=== PATIENT | male | born 1955 | race Caucasian/White ===

== ENCOUNTER 2020-08-05 11:58 | Inpatient (IN) | payer OTHER, SELFPAY ==
[2020-08-05 12:03] VITALS: BP 149/70; PULSE 94; RESP 24; TEMP 37.4; O2SAT 100; BMI 50.5
--- NOTE | 2020-08-05 12:06 | ED_ITS ---
HPI - General Adult General Chief complaint: Nausea/Vomiting/Diarrhea Stated complaint: UNKNOWN Time Seen by Provider: 08/05/20 12:06 Source: EMS Mode of arrival: EMS Limitations: no limitations History of Present Illness HPI narrative: 64-year-old male with below history including history of chronic alcoholism with frequent relapses as well as heroin abuse as well as other history as noted below presenting with complaint states he has had some nausea vomiting and diarrhea for past 3 days with body aches feeling like he is in withdrawal from opiates/ Alcohol. He otherwise denies any fever chills. No chest pain or shortness of breath. Does have abdominal pain which does seem to exacerbate during his times of withdrawal. No upper respiratory symptoms. No recent travel or sick contacts. No recent hospitalization. States he takes a few nips a day last drink was 3 days ago as well as occasional heroin and last used 3 days ago as well. Onset (ago): day(s) Severity: moderate Pain Consistency: constant Relieving factors: none Treatments prior to arrival: none Related Data Home Medications Medication Instructions Recorded Confirmed omeprazole 1 cap PO DAILY 08/05/20 08/05/20 ondansetron HCl 1 tab PO Q6H PRN 08/05/20 08/05/20 potassium chloride 1 tab PO Q12H 08/05/20 08/05/20 Allergies Allergy/AdvReac Type Severity Reaction Status Date / Time No Known Allergies Allergy Unverified 05/15/20 14:53 Review of Systems Review of Systems: Constitutional: No Weight loss, No Fever, + Chills, No Night Sweats, No Fatigue, No Malaise ENT/Mouth: No Hearing loss, No Ear Pain, No Nasal Congestion, No Sinus Pain, No Hoarseness, No sore throat, No Rhinorrhea, No Swallowing Difficulty Eyes: No Eye Pain, No Swelling, No Redness, No Foreign Body, No Discharge, No Vision Changes Cardiovascular: No Chest Pain, No SOB, No Dyspnea on Exertion, No Orthopnea, No Edema, No Palpitations Respiratory: No Cough, No Sputum, No Wheezing, No Smoke Exposure, No Dyspnea Gastrointestinal:as noted in HPI, No Hematochezia, No Melena Genitourinary: no irregular bleeding, No Dysuria, No Urinary Frequency, No Hematuria, No Urinary Incontinence, No Urgency, No Flank Pain, No Urinary Flow Changes, No Hesitancy Musculoskeletal: No joint pain, No Myalgias, No Joint Swelling Skin: No Skin Lesions, No rash Neuro: No Weakness, No Numbness, No Paresthesias, No Loss of Consciousness, No Dizziness, No Headache Psych: + Anxiety, No Depression, No SI/HI/AH/VH Heme/Lymph: No Bruising, No Bleeding,No Lymphadenopathy Endocrine: No Polyuria, No Polydipsia, No Temperature Intolerance [facility] Past Medical History Medical History (Updated 08/05/20 @ 15:40 by Solo Lemons NP) Atherosclerosis of aorto-iliac bypass graft Depressive disorder ETOH abuse Hepatitis Hypertension Thrombocytopenia Surgical History (Updated 08/05/20 @ 12:30 by Solo Lemons NP) H/O aorto-femoral bypass Hx of endovascular stent graft for abdominal aortic aneurysm Social History Social History Advance Directives: No Advance Directives Information Provided: No Physical Exam Vital Signs: Vital Signs: Last Vital Signs Temp 99.4 F 08/05/20 12:03 Pulse 94 08/05/20 12:03 Resp 24 H 08/05/20 12:03 BP 149/70 H 08/05/20 12:03 Pulse Ox 100 08/05/20 12:03 Body Mass Index 50.5 Reviewed Const: Other: appears older than stated age/ anxious and tremorous General: anxious, ill appearing and poor hygiene Nutritional Appearance: average body habitus Orientation/consciousness: patient oriented x3 HENMT: Head: Yes normal to inspection Ears: hearing grossly normal bilaterally Eyes: General: appearance normal, both eyes and all related structures Visual Cain: normal visual cain by confrontation Neck: Neck: Yes normal visual inspection and No tender Thyroid: Thyroid normal Chest: Chest palpation & inspection: normal inspection of the chest Resp: Effort & Inspection: normal respiratory effort Auscultation: clear to auscultation bilaterally Cardio: Jugular venous distension: no JVD Rhythm: abnormal rhythm ( sinus rhythm with occasional PVC ) GI: Inspection: Yes normal to inspection Palpation (GI): Soft to palpation Percussion: Yes normal to percussion Auscultation: normal bowel sounds : General: Yes no CVA tenderness Back/Spine/Pelvis: Back: no CVA tenderness Skin: General skin exam: no rashes or lesions noted Neuro: General: patient oriented x3 Extrem: General: Yes normal to inspection Right lower extremity: normal to inspection and full ROM Course Course Course Narrative: in review 62-year-old male with above history known to this facility for his prior visits for similar complaint presenting via EMS from home with 3 days of sobriety from opiates as well as alcohol which she seems to be using for a regularly recently relapsed presenting very tremorous and symptoms consistent with alcohol withdrawal. Workup initiated EKG and bedside monitor shows sinus rhythm with occasional PVC/Pac. Case discussed with attending given the alcohol abuse will go ahead and administer 2 mg of IV magnesium, IV fluids as well as banana bag ordered. Workup initiated will monitor closely. Reevaluation(s) Reevaluation #1: his tachycardia and tremors have improved started on phenobarbital. Labs shows mild hypokalemia repleted with IV K given IV fluids as well as banana bag. Chest x-ray negative as well as COVID test negative. Plan for admission. Case discussed with hospitalist. Medical Decision Making Lab Data Result diagrams: 08/05/20 13:17 08/05/20 13:17 Labs: Lab Results 08/05/20 08/05/20 08/05/20 Range/Units 13:16 13:16 13:16 WBC (4.8-10.8) X10*3/uL RBC (4.60-5.80) X10*6/uL Hgb (14.0-18.0) g/dl Hct (42-52) % MCV (80-98) fL MCH (27.0-33.0) pg MCHC (31.0-36.0) g/dl RDW (11.0-16.0) % Plt Count (160-400) X10*3/uL MPV (9.4-12.4) fL Immature Gran % (Auto) (0.0-0.4) % Neut % (Auto) (45-73) % Lymph % (Auto) (20-40) % [place] % (Auto) (2-11) % Eos % (Auto) (0-4) % Baso % (Auto) (0-2) % Lymph # (Auto) (1.2-4.9) X10*3/uL [place] # (Auto) (0.1-1.2) X10*3/uL Eos # (Auto) (0.0-0.4) X10*3/uL Baso # (Auto) (0.0-0.2) X10*3/uL Abs Immat Gran (auto) (0.00-0.03) X10*3/uL Absolute Neuts (auto) (2.0-8.3) X10*3/uL Absolute Nucleated RBC (0.0-0.012) X10*3/uL Nucleated RBC % (auto) (0.0-0.2) /100WBC PT (10.8-13.0) SEC INR (0.9-1.1) APTT (24.1-38.0) SEC Sodium (135-145) mmol/L Potassium (3.3-5.1) mmol/l Chloride (96-108) mmol/L Carbon Dioxide (22-29) mmol/L Anion Gap (12-20) BUN (9-16) mg/dL Creatinine (0.5-1.4) mg/dL Estim Creat Clear Calc Estimated GFR Random Glucose (60-115) mg/dL Lactic Acid 1.7 (0.5-2.0) mmol/L Calcium (8.4-10.2) mg/dL Magnesium (1.6-2.6) mg/dL Total Bilirubin (0.0-1.0) mg/dL AST (5-37) U/L ALT (0-40) U/L Alkaline Phosphatase (39-117) U/L Troponin I High Sens 7.6 (<3.5-35.0) ng/L Total Protein (6.5-8.0) g/dL Albumin (3.5-5.0) g/dL Ethyl Alcohol < 10 mg/dL COVID-19 (TUAN) (Negative) COVID-19 Clin Com 08/05/20 08/05/20 08/05/20 Range/Units 13:17 13:17 13:17 WBC 8.4 (4.8-10.8) X10*3/uL RBC 3.77 L (4.60-5.80) X10*6/uL Hgb 12.3 L (14.0-18.0) g/dl Hct 37.0 L (42-52) % MCV 98.1 H (80-98) fL MCH 32.6 (27.0-33.0) pg MCHC 33.2 (31.0-36.0) g/dl RDW 14.2 (11.0-16.0) % Plt Count 213 (160-400) X10*3/uL MPV 10.0 (9.4-12.4) fL Immature Gran % (Auto) 0.4 (0.0-0.4) % Neut % (Auto) 81.0 H (45-73) % Lymph % (Auto) 8.5 L (20-40) % [place] % (Auto) 9.4 (2-11) % Eos % (Auto) 0.0 (0-4) % Baso % (Auto) 0.7 (0-2) % Lymph # (Auto) 0.7 L (1.2-4.9) X10*3/uL [place] # (Auto) 0.8 (0.1-1.2) X10*3/uL Eos # (Auto) 0.0 (0.0-0.4) X10*3/uL Baso # (Auto) 0.1 (0.0-0.2) X10*3/uL Abs Immat Gran (auto) 0.03 (0.00-0.03) X10*3/uL Absolute Neuts (auto) 6.8 (2.0-8.3) X10*3/uL Absolute Nucleated RBC 0.000 (0.0-0.012) X10*3/uL Nucleated RBC % (auto) 0.0 (0.0-0.2) /100WBC PT 12.7 (10.8-13.0) SEC INR 1.1 (0.9-1.1) APTT 29.4 (24.1-38.0) SEC Sodium 138 (135-145) mmol/L Potassium 2.8 L (3.3-5.1) mmol/l Chloride 101 (96-108) mmol/L Carbon Dioxide 26 (22-29) mmol/L Anion Gap 14 (12-20) BUN 4 L (9-16) mg/dL Creatinine 0.67 (0.5-1.4) mg/dL Estim Creat Clear Calc 174.3 Estimated GFR > 60 Random Glucose 146 H (60-115) mg/dL Lactic Acid (0.5-2.0) mmol/L Calcium 8.1 L (8.4-10.2) mg/dL Magnesium 2.9 H (1.6-2.6) mg/dL Total Bilirubin 0.8 (0.0-1.0) mg/dL AST 59 H (5-37) U/L ALT 31 (0-40) U/L Alkaline Phosphatase 153 H (39-117) U/L Troponin I High Sens (<3.5-35.0) ng/L Total Protein 6.5 (6.5-8.0) g/dL Albumin 3.6 (3.5-5.0) g/dL Ethyl Alcohol mg/dL COVID-19 (TUAN) (Negative) COVID-19 Clin Com 08/05/20 Range/Units 13:17 WBC (4.8-10.8) X10*3/uL RBC (4.60-5.80) X10*6/uL Hgb (14.0-18.0) g/dl Hct (42-52) % MCV (80-98) fL MCH (27.0-33.0) pg MCHC (31.0-36.0) g/dl RDW (11.0-16.0) % Plt Count (160-400) X10*3/uL MPV (9.4-12.4) fL Immature Gran % (Auto) (0.0-0.4) % Neut % (Auto) (45-73) % Lymph % (Auto) (20-40) % [place] % (Auto) (2-11) % Eos % (Auto) (0-4) % Baso % (Auto) (0-2) % Lymph # (Auto) (1.2-4.9) X10*3/uL [place] # (Auto) (0.1-1.2) X10*3/uL Eos # (Auto) (0.0-0.4) X10*3/uL Baso # (Auto) (0.0-0.2) X10*3/uL Abs Immat Gran (auto) (0.00-0.03) X10*3/uL Absolute Neuts (auto) (2.0-8.3) X10*3/uL Absolute Nucleated RBC (0.0-0.012) X10*3/uL Nucleated RBC % (auto) (0.0-0.2) /100WBC PT (10.8-13.0) SEC INR (0.9-1.1) APTT (24.1-38.0) SEC Sodium (135-145) mmol/L Potassium (3.3-5.1) mmol/l Chloride (96-108) mmol/L Carbon Dioxide (22-29) mmol/L Anion Gap (12-20) BUN (9-16) mg/dL Creatinine (0.5-1.4) mg/dL Estim Creat Clear Calc Estimated GFR Random Glucose (60-115) mg/dL Lactic Acid (0.5-2.0) mmol/L Calcium (8.4-10.2) mg/dL Magnesium (1.6-2.6) mg/dL Total Bilirubin (0.0-1.0) mg/dL AST (5-37) U/L ALT (0-40) U/L Alkaline Phosphatase (39-117) U/L Troponin I High Sens (<3.5-35.0) ng/L Total Protein (6.5-8.0) g/dL Albumin (3.5-5.0) g/dL Ethyl Alcohol mg/dL COVID-19 (TUAN) Negative (Negative) COVID-19 Clin Com See Note Imaging Data Chest x-ray/abdominal pelvis CT with contrast: Radiologist's impression: [place] [id number] XRay Report Signed Patient: Jason Espinosa PMR#: [id number] : 8Acct:[id number] Age/Sex: 64 / MADM Date: 08/05/20 Loc: HO.ED Attending Dr: Ordering Physician: Solo Lemons NP Date of Service: 08/05/20 Procedure(s): XR chest 1V Accession Number(s): [id number] cc: Solo Lemons FLAKEBOARD LINE TENDER~ EXAMINATION: CHEST X-RAY CLINICAL INFORMATION: Weakness COMPARISON: None TECHNIQUE: AP portable chest FINDINGS: The cardiac and mediastinal contours are normal. The lungs are clear. There is no pleural effusion or pneumothorax. Bony structures are unremarkable. XR/XR chest 1V IMPRESSION: Unremarkable exam. EXAMINATION: Abdominal and pelvic CT without IV contrast CLINICAL INFORMATION: Abdominal pain COMPARISON: Previous CT scans most recent March 2020 TECHNIQUE: Axial images through the abdomen and pelvis without oral or IV contrast sagittal and coronal re-erosions on the technologist workstation were performed. Patient dose 4 4 3 mg/cm. This CT examination was performed using dose optimization techniques as appropriate, variously including the following: *Automated exposure control *Adjustment of mA and/or kV according to patient size (this includes techniques or standardized protocols for targeted exams where dose is matched to indication/reason for exam; i.e. extremities or head) *Use of iterative reconstruction technique FINDINGS: The lung bases are clear. The liver is low in attenuation suggestive of fatty infiltration. The liver is otherwise unremarkable. The gallbladder is unremarkable. There is no biliary duct dilatation. There are small calcifications in the head of pancreas. Pancreas is otherwise unremarkable. Is unremarkable. The adrenal glands are unremarkable. There is a 4 mm stone in the upper pole of the left kidney. The kidneys are otherwise unremarkable. The bladder is unremarkable. The resting gland does not appear enlarged. There is a broad-based abdominal wall hernia or bulge. This has a wide 11 x 14 cm neck. This contains the distal stomach and small and large bowel. There is no evidence of obstruction. The stomach and small bowel are distended and fluid-filled. There is mild wall thickening of the colon colon questionable for colitis. There is fat seen in the wall of the colon which is a nonspecific finding. There is no evidence of mechanical obstruction. No evidence of ischemia/pneumatosis is seen. There is evidence of severe atherosclerotic disease. There is an aorto by iliac bypass graft. There is no ascites. There is no adenopathy. Review at bone windows demonstrates mild degenerative changes of the spine. IMPRESSION: Distended fluid-filled stomach and small bowel. No transition zone/caliber change to suggest obstruction. There is a mild diffuse wall thickening of the colon and questionable for colitis. Large broad-based abdominal wall hernia versus diffuse bulge. This contains the distal stomach, small and large bowel. No evidence of obstruction. Fatty liver. Left renal stone. Calcifications in the pancreas suggestive of chronic pancreatitis. Atherosclerotic disease and evidence of aortobiiliac bypass graft. Dictated By:ASTON NUGENT MD Signed By:<Electronically signed by ASTON NUGENT MD in OV>08/05/20 1427 DD/ 1207 TD/TT: Through Freight Engineer: MASSIEL ECG Data Interpretation: normal sinus rhythm with occasional PVC/Pac complexes Rate 70 IA interval 118 Prolonged QT at 472/[address] segment changes Discharge Plan Discharge Clinical Impression: Alcohol withdrawal, Substance abuse, Nausea & vomiting, Diarrhea, Acute hypokalemia Patient Disposition: Admitted As Inpatient
--- NOTE | 2020-08-05 12:07 | ECG_ITS ---
Test Reason : WEAKNESSS Blood Pressure : / mmHG Vent. Rate : 070 BPM Atrial Rate : 070 BPM P-R Int : 118 ms QRS Dur : 078 ms QT Int : 472 ms P-R-T Axes : 048 060 060 degrees QTc Int : 509 ms Sinus rhythm with occasional Premature ventricular complexes and Premature atrial complexes Abnormal ECG When compared with ECG of 07-FEB-2018 16:25, Premature ventricular complexes are now Present Premature atrial complexes are now Present QT has lengthened Referred By: Solo Lemons Electronically Signed By:THOMAS MOSLEY
[2020-08-05] MEDS: 0.9 % Sodium Chloride 1,000 ML 999 ML IV (12:24)
[2020-08-05] MEDS: LORazepam 2 MG/ML VIAL 1 MG IVPUSH (12:25)
[2020-08-05] MEDS: Magnesium Sulfate/H2O 2 GM/50 ML PIGGYBACK IV (12:34)
[2020-08-05 13:30] LABS: MANUAL DIFF FLAG NO
[2020-08-05 13:32] LABS: Basophils Absolute Auto 0.1 X10*3/uL (0.0-0.2); Basophils Percent Auto 0.7 % (0-2); Hemoglobin 12.3 g/dl (14.0-18.0); Imm Gran Abs Auto 0.03 X10*3/uL (0.00-0.03); Imm Gran Pct Auto 0.4 % (0.0-0.4); Lymphocytes Absolute Auto 0.7 X10*3/uL (1.2-4.9); Lymphocytes Percent Auto 8.5 % (20-40); Mean Corpuscular HGB Conc 33.2 g/dl (31.0-36.0); Mean Corpuscular Hemoglobin 32.6 pg (27.0-33.0); Mean Corpuscular Volume 98.1 fL (80-98); Monocytes Absolute Auto 0.8 X10*3/uL (0.1-1.2); Monocytes Percent Auto 9.4 % (2-11); Neutrophils Absolute Auto 6.8 X10*3/uL (2.0-8.3); Platelet Count 213 X10*3/uL (160-400); Red Blood Count 3.77 X10*6/uL (4.60-5.80); Red Cell Distribution Width 14.2 % (11.0-16.0); White Blood Count 8.4 X10*3/uL (4.8-10.8)
[2020-08-05 13:51] LABS: COVID-19 Test Negative (Negative); IDNOW Serial# 9DD0AD1C; INTERNATIONAL NORM RATIO 1.1 (0.9-1.1); Prothrombin Time 12.7 SEC (10.8-13.0)
[2020-08-05 13:54] LABS: Partial Thromboplastin Time 29.4 SEC (24.1-38.0)
[2020-08-05 13:56] LABS: Lactic Acid 1.7 mmol/L (0.5-2.0)
[2020-08-05 14:00] LABS: Ethanol < 10 mg/dL
[2020-08-05 14:08] LABS: Alanine Aminotransferase 31 U/L (0-40); Albumin Level 3.6 g/dL (3.5-5.0); Alkaline Phosphatase 153 U/L (39-117); Anion Gap 14 (12-20); Aspartate Amino Transferase 59 U/L (5-37); Bilirubin Total 0.8 mg/dL (0.0-1.0); Blood Urea Nitrogen 4 mg/dL (9-16); Calcium 8.1 mg/dL (8.4-10.2); Carbon Dioxide 26 mmol/L (22-29); Chloride 101 mmol/L (96-108); Creatinine Clr Calc Pharmacy 174.3; Estimated Glomerular Filt Rate > 60; Glucose Random 146 mg/dL (60-115); Magnesium 2.9 mg/dL (1.6-2.6); Potassium 2.8 mmol/l (3.3-5.1); Sodium 138 mmol/L (135-145); Total Protein 6.5 g/dL (6.5-8.0)
[2020-08-05 14:10] LABS: Troponin-I High Sensitivity 7.6 ng/L (<3.5-35.0)
[2020-08-05] MEDS: Potassium Chloride/H20 10 MEQ/100 ML PIGGYBACK 100 MEQ IV ×2 (15:22→21:35)
[2020-08-05] MEDS: PHENobarbitaL sodium 130 MG/ML VIAL 292 MG IM (15:23)
[2020-08-05 16:00] VITALS: BP 168/92; PULSE 74; RESP 14; TEMP 36.9; O2SAT 100
[2020-08-05 16:55] LABS: Appearance Urine CLEAR; Color Urine YELLOW; Glucose Urine UA NEG (NEG); Leukocyte Esterase Urine NEG (NEG); Nitrite Urine NEG (NEG); Urine Blood NEG (NEG); Urine Ketones NEG (NEG); Urine Protein NEG (NEG-TRACE)
[2020-08-05 17:03] LABS: Bacteria Urine TRACE /LPF; RBC Urine 0-2 /HPF (0); Squamous Epithelial Cell Urine TRACE /LPF; WBC Urine 0-2 /HPF (0-4)
--- NOTE | 2020-08-05 17:20 | HP_ITS ---
DATE OF SERVICE: 08/05/2020 CHIEF COMPLAINT: Abdominal pain. HISTORY OF PRESENTING ILLNESS: This is a 64-year-old gentleman with past medical history significant for chronic alcoholism, chronic abdominal pain as well as history of IV drug abuse, presented to [facility] due to symptoms of nausea, nonbloody vomiting, and abdominal pain of 3 days' duration. The patient has stopped drinking alcohol and using IV heroin. He admits of drinking 10 nips daily and uses 6 to 8 packs of IV heroin on a regular basis. The patient denies any chest pain. Denies any lightheadedness, dizziness. He denies any recent travel. No fever or chills. In the emergency room, workup revealed low potassium of 2.8, alcohol level less than 10, kidney function stable, magnesium of 2.9, slightly elevated AST of 59, and alkaline phosphatase of 153, albumin is stable at 3.6. The patient's white cell count is stable as well as platelet count of 230. INR is 1.1. Imaging studies included a chest x-ray that showed acute infiltrate. CT abdomen showed distended fluid-filled stomach and small bowel. No transition zone caliber change to suggest obstruction. There is a mild diffuse wall thickening of the colon and questionable for colitis. There is a large broad-based abdominal hernia noted. This contains the distal stomach, small and large bowel. No evidence of obstruction noted. There is evidence of fatty liver. Calcification in the pancreas is suggestive of chronic pancreatitis. There is also evidence of aorto bi-iliac bypass graft. The patient in the emergency room was treated with IV fluids, IV potassium and magnesium, and has been started on phenobarbital protocol. PAST MEDICAL HISTORY: Significant for, 1. Recurrent emergency room visits for abdominal pain. 2. He has history of chronic alcoholism. 3. History of thrombocytopenia. 4. History of hypertension. 5. History of hepatitis. PAST SURGICAL HISTORY: The patient is status post aortofemoral/aortic iliac bypass graft. SOCIAL HISTORY: The patient admits to smoke half to 1 pack of cigarettes a day. He drinks 10 nips daily and use 6 to 8 bags of heroin. Last use 3 days ago. The patient lives at home with his son and ambulate without any assistive device. FAMILY HISTORY: The patient denies any history of premature coronary artery disease. HOME MEDICATIONS: The patient is on omeprazole 1 capsule daily, Zofran 1 tablet every 6 hours as needed, and potassium chloride 1 tablet every 12 hours. ALLERGIES: HE HAS NO KNOWN DRUG ALLERGIES. REVIEW OF SYSTEMS: GENERAL: He denies any fever, chills, or riders. RECRUITING SPECIALIST: The patient denies any headache or dizziness. CVS: He denies any chest pain or palpitation. RESPIRATORY: He denies any cough or sputum production. GI: He complains of nausea, nonbloody vomiting and epigastric abdominal pain. He denies any diarrhea. : He denies any urinary symptoms of urgency and frequency. Rest of all other systems are reviewed and are negative. PHYSICAL EXAMINATION: GENERAL: The patient is resting in bed, has mild tremors and is slow to answer questions, but has no confusion. VITAL SIGNS: BP 149/70 with pulse of 94, respiratory rate 24, temperature of 99.4, O2 saturation 100% on room air. HEENT: Pupils are equal, round, and reactive to light and accommodation. Extraocular muscles intact. NECK: Supple. No JVD. LUNGS: Clear to auscultation bilaterally. HEART: Tachy, regular. ABDOMEN: Soft. Positive tenderness at epigastric area. Bowel sounds are audible. There is no rebound, no rigidity noted. EXTREMITIES: Without clubbing, cyanosis, or edema. SKIN: No rashes noted. NEURO: The patient is awake, alert, oriented to time, place, and person. PSYCH: The patient appears anxious and tremulous. LABORATORY DATA: Showed a WBC count of 8.4, hematocrit 37, platelet count of 213. INR 1.1. Sodium 138, potassium 2.8, chloride 101, bicarb 26, creatinine is 0.67, BUN 4, blood sugar 146, magnesium 2.9, alkaline phosphatase 153, AST 59, albumin 3.6, and total protein 6.5. Alcohol level less than 10. COVID-19 is negative. EKG shows prolonged QT, sinus rhythm with occasional premature ventricular complexes and premature atrial complexes. ASSESSMENT AND PLAN: This is a 64-year-old gentleman with history of chronic alcoholism, presented to [facility] due to nausea, vomiting, abdominal discomfort along with anxiety and tremors, likely related to alcohol withdrawal. PROBLEM LIST: 1. Alcohol abuse and withdrawal. The patient will be admitted to medical floor, will be placed on phenobarbital protocol. We will continue thiamine, folic acid. The patient will be seen by care team and we will strongly recommend to abstain from alcohol. We will follow electrolytes and magnesium closely. 2. Nausea, vomiting, and abdominal pain, likely related to gastritis/gastropathy,and narcotics. The CAT scan of abdomen is showing fluid- filled stomach and small bowel with no transition zone or change in caliber suggestive of obstruction. There is mild diffuse wall thickening of the colon with concern for colitis, although the patient has no fever or chills. No lower abdominal discomfort. We will treat the patient with IV Protonix. Likely he has underlying peptic ulcer disease,and decrease motility related to narcotics Colitis is less likely. There is also a large broad based abdominal wall hernia versus diffuse bulge. We will obtain surgical consultation. We will place the patient on clear liquid diet. Since the patient is not aggressively vomiting, we will hold off on NG tube at the present time. We will correct electrolyte abnormalities and follow clinical course. 3. Prolonged QT. The patient has no chest pain, palpitation. We will correct electrolytes including both potassium and magnesium, and follow EKG. 4. History of IV drug use. 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 We will place the patient on as needed Atarax, clonidine, and will obtain care team consult as well as psych consult for drug abuse. 5. Deep vein thrombosis prophylaxis. The patient will be placed on Lovenox. 6. History of hypertension. The patient is not on home medications. Follow blood pressure closely. Current high blood pressure is likely related to alcohol withdrawal. 7. History of hypokalemia. The patient is on potassium replacement at home. Question due to gastrointestinal loss. We will replace potassium aggressively with both IV and by mouth replacement, and follow potassium level closely. 8. Code status discussed. The patient wishes to be a full code. MD JACEY Humphreys/BRIELLE / [id number] FADIA
[2020-08-05 17:31] LABS: Amphetamine Screen Urine Not Detected (Not Detect); Barbiturates, Urine POSITIVE (Not Detect); Benzodiazepines Screen Urine Not Detected (Not Detect); Cannabinoid Screen Urine Not Detected (Not Detect); Cocaine Screen Urine Not Detected (Not Detect); Opiate Screen Urine Not Detected (Not Detect); Phencyclidine Screen Urine Not Detected (Not Detect)
[2020-08-05 18:51] VITALS: BP 169/77; PULSE 69; RESP 18; TEMP 37.2; O2SAT 99
[2020-08-05] MEDS: PHENobarbitaL sodium 130 MG/ML VIAL 219 MG IM ×2 (19:12→22:16)
[2020-08-05] MEDS: Enoxaparin Sodium 40 MG/0.4 ML SYRINGE SUBCUT (21:35)
[2020-08-05] MEDS: Famotidine/PF 20 MG/2 ML VIAL IVPUSH (21:36)
[2020-08-05 23:21] VITALS: BP 160/80; PULSE 80; RESP 16; TEMP 36.8; O2SAT 100
--- NOTE | 2020-08-06 | ECG_ITS ---
Test Reason : PROLONGED QT Blood Pressure : / mmHG Vent. Rate : 088 BPM Atrial Rate : 088 BPM P-R Int : 128 ms QRS Dur : 072 ms QT Int : 396 ms P-R-T Axes : 074 012 063 degrees QTc Int : 479 ms Normal sinus rhythm Possible Left atrial enlargement Borderline ECG When compared to the previous EKG of 05 aug 2020, ectopy not noted. Referred By: Bi Tse Electronically Signed By:THOMAS MOSLEY
[2020-08-06] MEDS: PHENobarbitaL sodium 130 MG/ML VIAL 219 MG IM (01:19)
[2020-08-06] MEDS: 0.9 % Sodium Chloride Flush 3 ML SYRINGE IVFLUSH ×3 (01:23→17:04)
[2020-08-06 03:29] VITALS: BP 140/80; PULSE 88; RESP 16; TEMP 36.6; O2SAT 98
--- NOTE | 2020-08-06 06:35 | PC.NURSE ---
PT agitated he can't take shower. educated on reasons why he couldn't. Pt pulled out IV. New 20g IV placed, pt cooperative, just confused and needing reorientation frequently. [place] cath in place and working.
[2020-08-06 07:12] LABS: MANUAL DIFF FLAG NO
[2020-08-06 07:17] VITALS: BP 153/71; PULSE 86; RESP 18; TEMP 36.8; O2SAT 100
[2020-08-06 07:27] LABS: Basophils Absolute Auto 0.1 X10*3/uL (0.0-0.2); Basophils Percent Auto 0.8 % (0-2); Eosinophils Percent Auto 0.1 % (0-4); Hematocrit 36.9 % (42-52); Hemoglobin 12.1 g/dl (14.0-18.0); Imm Gran Abs Auto 0.03 X10*3/uL (0.00-0.03); Imm Gran Pct Auto 0.4 % (0.0-0.4); Lymphocytes Absolute Auto 1.5 X10*3/uL (1.2-4.9); Lymphocytes Percent Auto 19.7 % (20-40); Mean Corpuscular HGB Conc 32.8 g/dl (31.0-36.0); Mean Corpuscular Hemoglobin 31.9 pg (27.0-33.0); Mean Corpuscular Volume 97.4 fL (80-98); Mean Platelet Volume 10.3 fL (9.4-12.4); Monocytes Absolute Auto 0.7 X10*3/uL (0.1-1.2); Monocytes Percent Auto 8.7 % (2-11); Neutrophils Absolute Auto 5.4 X10*3/uL (2.0-8.3); Neutrophils Percent Auto 70.3 % (45-73); Platelet Count 220 X10*3/uL (160-400); Red Blood Count 3.79 X10*6/uL (4.60-5.80); Red Cell Distribution Width 14.1 % (11.0-16.0); White Blood Count 7.7 X10*3/uL (4.8-10.8)
[2020-08-06 08:08] LABS: Anion Gap 16 (12-20); Blood Urea Nitrogen 3 mg/dL (9-16); Calcium 7.9 mg/dL (8.4-10.2); Carbon Dioxide 24 mmol/L (22-29); Chloride 100 mmol/L (96-108); Creatinine Clr Calc Pharmacy 188.3; Estimated Glomerular Filt Rate > 60; Glucose Random 87 mg/dL (60-115); Potassium 2.9 mmol/l (3.3-5.1); Sodium 137 mmol/L (135-145)
[2020-08-06] MEDS: PHENobarbitaL 15 MG TABLET 45 MG PO ×2 (09:29→20:04)
[2020-08-06] MEDS: Famotidine/PF 20 MG/2 ML VIAL IVPUSH ×2 (09:31→20:02)
--- NOTE | 2020-08-06 09:33 | MHC.CM.PN ---
CM was unable to reach Patient by phone (Covmike Hagan);CM spoke with Patient's first contact- Mother/Stacie.Patient lives in an apartment with his adult Son- Usama and he is functionally independent. Patient's Son/Episcopal is the HCP and he is an knowledge engineer here at [employer]. Goal for dc is for the Patient to return home and CM has initiated and will follow for dc planning. PCP is through the [facility] @ [place]. Patient is here with ETOH Withdrawal and may benefit from a Care Team Consult.
--- NOTE | 2020-08-06 11:08 | HO.PM.IMPN ---
Subjective Subjective Date of Service: 08/06/20 Interval History: Seen in f/u alcohol withdrawal and agitation in setting of chronic heroin use. He seems better today, he did throw his breakfast tray earlier. Otherwise he wa alert Physical Exam Vital Signs: Vital Signs: Last Vital Signs Temp 98.2 F 08/06/20 07:17 Pulse 86 08/06/20 07:17 Resp 18 08/06/20 07:17 BP 153/71 H 08/06/20 07:17 Pulse Ox 100 08/06/20 07:17 Body Mass Index 50.5 General: AO X 3, no acute distress Resp: CTA bilateral CVS: S1,S2,RRR GI: +BS, NT, no distention Skin: No rash Neuro: motor grossly intact Psych: appropriate affect Objective Data Current Medications Generic Name Dose Route Start Last Admin Trade Name Freq PRN Reason Stop Dose Admin Acetaminophen 650 mg 08/05/20 18:37 Acetaminophen 325 Mg Tablet PO Q6H PRN Pain, Mild (Pain Scale 1-3) Enoxaparin Sodium 40 mg 08/05/20 20:00 08/05/20 21:35 Enoxaparin Sodium 40 Mg/0.4 Ml Syringe SUBCUT 40 mg Q24H [facility] Administration Famotidine 20 mg 08/05/20 21:00 08/06/20 09:31 Famotidine/Pf 20 Mg/2 Ml Vial IVPUSH 20 mg BID [facility] Administration Hydroxyzine HCl 25 mg 08/06/20 10:39 Hydroxyzine Hcl 25 Mg Tablet PO Q6H PRN Opiate Withdrawal Medication 1 each 08/05/20 15:00 No Benzodiazepines MISCELLANE DAILY [facility] Protocol Ondansetron HCl 4 mg 08/05/20 18:37 Ondansetron Hcl 4 Mg/2 Ml Vial IVPUSH Q8H PRN Nausea and Vomiting Pharmacy Consult 1 each 08/05/20 12:09 Consult Rx Perform Med Rec MISCELLANE ONCE PRN Consult order Phenobarbital 45 mg 08/06/20 09:00 08/06/20 09:29 Phenobarbital 15 Mg Tablet PO 08/07/20 21:01 45 mg BID [facility] Administration Phenobarbital 15 mg 08/08/20 09:00 Phenobarbital 15 Mg Tablet PO 08/09/20 21:01 BID [facility] Phenobarbital 15 mg 08/10/20 09:00 Phenobarbital 15 Mg Tablet PO 08/13/20 09:01 DAILY [facility] Potassium Chloride 40 meq 08/06/20 09:00 08/06/20 09:30 Potassium Chloride Er 10 Meq Capsule.Er PO 40 meq Q6H [facility] Administration Sodium Chloride 3 ml 08/05/20 18:37 08/06/20 09:29 0.9 % Sodium Chloride Flush 3 Ml Syringe IVFLUSH 3 ml QSHIFT [facility] Administration Labs CBC & Chem 7: 08/06/20 05:47 08/06/20 05:47 Assessment and Plan (1) Alcohol withdrawal: Status: Acute (2) Substance abuse: Status: Acute Assessment and Plan: 64-year-old gentleman with history of chronic alcoholism, presented to [facility] due to nausea, vomiting, abdominal discomfort along with anxiety and tremors, likely related to alcohol withdrawal. PROBLEM LIST: 1. Alcohol abuse and withdrawal. -continue phenobarb -vitamin replacement -replece K Nausea, vomiting, and abdominal pain, likely related to gastritis/gastropathy,and narcotics and low K related ileus. The CAT scan of abdomen is showing fluid-filled stomach and small bowel with no transition zone or change in caliber suggestive of obstruction. There is mild diffuse wall thickening of the colon with concern for colitis, although the patient has no fever or chills. No lower abdominal discomfort. We will treat the patient with IV Protonix. Likely he has underlying peptic ulcer disease,and decrease motility related to narcotics Colitis is less likely. There is also a large broad based abdominal wall hernia versus diffuse bulge. We will obtain surgical consultation. We will place the patient on clear liquid diet. Since the patient is not aggressively vomiting, we will hold off on NG tube at the present time. We will correct electrolyte abnormalities and follow clinical course. Prolonged QT. The patient has no chest pain, palpitation. We will correct electrolytes including both potassium and magnesium, and follow EKG. History of IV drug use. 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 We will placed on as needed Atarax, clonidine, and will obtain care team consult as well as psych consult for drug abuse. Deep vein thrombosis prophylaxis. The patient will be placed on Lovenox. History of hypertension. BP remains consistently high, start Norvasc History of hypokalemia acute on chronic, replace. check level tomorrow Code status discussed. The patient wishes to be a full code.
[2020-08-06 11:45] VITALS: BP 181/79; PULSE 76; RESP 20; TEMP 36.4; O2SAT 98
--- NOTE | 2020-08-06 12:26 | MHC.CLN ---
PT'S ADMISSION WT OF 160KG IS INACCURATE RECOMMEND RE-WEIGHT
--- NOTE | 2020-08-06 14:20 | MHC.CARE ---
Recovery Support note: Patient is a 64 year old Tongan speaking male who presented to [facility] ED due to nausea and vomiting, reporting recent drug and alcohol use. This greeting card writer began to discuss patient's substance use however patient presents as confused and is unable to participate in a meaningful discussion on use. This greeting card writer will return tomorrow to continue this conversation with patient.
[2020-08-06 15:57] VITALS: BP 149/99; PULSE 77; RESP 19; TEMP 36.3; O2SAT 99
--- NOTE | 2020-08-06 18:24 | P.CONGS_ITS ---
History of Present Illness Consult details Consult date: 08/06/20 Reason for consult: other (Possible small bowel obstruction) Requesting physician: Bi Tse Narrative: This is a 64-year-old gentleman with a history of alcohol and heroin use who presented to the emergency department yesterday with a 3 day history of nausea, vomiting and loose stool. Per the record, he reported abdominal pain as well. When I spoke with him today, he reported only a history of loose stool. He had no complaints of nausea or abdominal pain. He reports passing flatus this morning. He reports that he developed a large hernia following repair of an abdominal aortic aneurysm. He says the hernia appears to be enlarging, but that it does not give him any trouble. He does not report fever or chills. He is not aware that anyone else at home has similar symptoms. He does not report any sick contacts or consumption of any for paired foods recently. He reports consuming about 10 nips per day when he is drinking, but was unable to say when he last had any alcohol. He states that he has not used heroin in a while, perhaps months. Review of Systems Cardiovascular: Cardiovascular: Denies chest pain and Denies irregular heart rhythm Respiratory: Respiratory: Denies cough and Denies wheezing Allergic/Immunologic: Allergic/Immunologic: Denies wheezing PMFSH Past Medical History Medical History (Updated 08/06/20 @ 18:45 by Mimi Armendariz MD) Atherosclerosis of aorto-iliac bypass graft Depressive disorder ETOH abuse Hepatitis Hypertension Thrombocytopenia Surgical History Surgical History (Updated 08/05/20 @ 12:30 by Solo Lemons NP) H/O aorto-femoral bypass Hx of endovascular stent graft for abdominal aortic aneurysm Social History Social History Household Members: Unknown / Unable to assess Housing: Unknown / Unable to assess Do you presently have visiting nurse or other home services: No Alcohol intake: current Alcohol intake frequency: 3 or more drinks per day Smoking Status: Unknown if ever smoked Use of substances other than those prescribed or required for medical reasons: Refusing to respond Substance Use Type: Heroin Substance Use Type Other:: hx of heroin use Last Used Substance: Unknown Currently Displaying Signs/Symptoms of Drug Intoxication Withdrawal: No Advance Directives: No Advance Directives Information Provided: No Advance Directives on File: No Do you have thoughts of harming others: None Do you have a plan to hurt others: No Plan Recently lost weight without trying: Unsure service: Yes Current occupational status: disabled Meds Allergies Allergy/AdvReac Type Severity Reaction Status Date / Time No Known Allergies Allergy Unverified 05/15/20 14:53 Home Medications Medication Instructions Recorded Confirmed Type omeprazole 1 cap PO DAILY 08/05/20 08/05/20 History ondansetron HCl 1 tab PO Q6H PRN 08/05/20 08/05/20 History potassium chloride 1 tab PO Q12H 08/05/20 08/05/20 History Physical Exam Vital Signs: Vital Signs: Last Vital Signs Temp 97.4 F 08/06/20 15:57 Pulse 77 08/06/20 15:57 Resp 19 08/06/20 15:57 BP 149/99 H 08/06/20 15:57 Pulse Ox 99 08/06/20 15:57 Body Mass Index 50.5 Const: Other: Did not answer when asked if he knew he was in the hospital but he called out for relatives who were not present on a few occasions and stated that they were in the next room General: no acute distress Orientation/consciousness: No oriented to place HENMT: Head: Yes normal to inspection Neck: Neck: Yes trachea midline and Yes supple Resp: Effort & Inspection: normal respiratory effort Auscultation: diminished lung sounds Cardio: Rate: regular rate GI: Other: Soft, large nontender, partially reducible central upper abdominal incisional hernia, no palpable masses Skin: Other: Warm and dry Neuro: Other: Mildly restless intermittently General: No oriented to place Extrem: Other: No edema Results Labs Result diagrams: 08/06/20 05:47 08/06/20 18:02 Labs: Abnormal lab results 08/06/20 08/06/20 Range/Units 05:47 05:47 RBC 3.79 L (4.60-5.80) X10*6/uL Hgb 12.1 L (14.0-18.0) g/dl Hct 36.9 L (42-52) % Lymph % (Auto) 19.7 L (20-40) % Potassium 2.9 L (3.3-5.1) mmol/l BUN 3 L (9-16) mg/dL Calcium 7.9 L (8.4-10.2) mg/dL Short CBC 08/06/20 Range/Units 05:47 WBC 7.7 (4.8-10.8) X10*3/uL Hgb 12.1 L (14.0-18.0) g/dl Hct 36.9 L (42-52) % Plt Count 220 (160-400) X10*3/uL BMP 08/06/20 05:47 Sodium 137 Potassium 2.9 L Chloride 100 Carbon Dioxide 24 BUN 3 L Creatinine 0.62 Calcium 7.9 L Urine 08/05/20 Range/Units 16:45 Urine Color YELLOW Urine Appearance CLEAR Urine pH 7.0 (5.0-8.0) Ur Specific [place] 1.020 (1.005-1.025) Urine Protein NEG (NEG-TRACE) MG/DL Urine Glucose (UA) NEG (NEG) MG/DL All other labs normal. Assessment and Plan (1) Alcohol withdrawal: Problem details: On phenobarbital protocol. To receive 1 additional dose tonight. Status: Acute (2) Abnormal CT scan: Problem details: Scan showed mildly dilated stomach and proximal small bowel without transition zone. He does not report any recent narcotic use. Symptoms could be secondary to narcotic withdrawal or gastroenteritis. If he has recurrence of nausea and vomiting, repeat imaging and trial of NG placement may be appropriate. Status: Acute
[2020-08-06 18:41] LABS: Anion Gap 13 (12-20); Carbon Dioxide 29 mmol/L (22-29); Chloride 98 mmol/L (96-108); Potassium 3.3 mmol/l (3.3-5.1); Sodium 137 mmol/L (135-145)
[2020-08-06 19:52] VITALS: BP 182/85; PULSE 80; RESP 19; TEMP 36.9; O2SAT 97
[2020-08-06] MEDS: Enoxaparin Sodium 40 MG/0.4 ML SYRINGE SUBCUT (20:02)
[2020-08-06] MEDS: PHENobarbitaL sodium 65 MG/ML VIAL IM (20:03)
[2020-08-07] VITALS (8 sets, daily range): BP systolic 127–177; BP diastolic 74–86; PULSE 73–91; RESP 16–20; TEMP 36.2–37.1; O2SAT 93–99
[2020-08-07] MEDS: 0.9 % Sodium Chloride Flush 3 ML SYRINGE IVFLUSH ×4 (00:22→21:22)
[2020-08-07] MEDS: Famotidine/PF 20 MG/2 ML VIAL IVPUSH ×2 (08:52→21:21)
[2020-08-07] MEDS: PHENobarbitaL 15 MG TABLET 45 MG PO ×2 (08:52→21:21)
--- NOTE | 2020-08-07 10:37 | P.PNGS_ITS ---
Subjective Subjective Date of Service: 08/07/20 Interval history: Very sleepy this morning, no complaints of abdominal pain. Reports no nausea or vomiting overnight. Physical Exam Vital Signs: Vital Signs: Last Vital Signs Temp 97.8 F 08/07/20 08:00 Pulse 73 08/07/20 08:00 Resp 20 08/07/20 08:00 BP 177/82 H 08/07/20 08:00 Pulse Ox 99 08/07/20 08:00 Body Mass Index 50.5 Const: Other: Very sleepy, cooperative when roused but drifts back to sleep easily Resp: Auscultation: clear to auscultation bilaterally Cardio: Rate: regular rate Rhythm: regular rhythm GI: Other: Large central incisional hernia, reducible, nontender, normal bowel sounds Progress Note: A&P Assessment and plan (1) Abnormal CT scan: Problem details: Scan showed mildly dilated stomach and proximal small bowel without transition zone. He does not report any recent narcotic use. Symptoms could be secondary to narcotic withdrawal or gastroenteritis. If he has recurrence of nausea and vomiting, repeat imaging and trial of NG placement may be appropriate. Status: Acute Assessment and Plan: No recurrent GI symptoms documented. He has been tolerating clear liquids, though he has not been consuming a high volume. increase diet as tolerated. Fall Risk Details Current Medications: Current Medications Generic Name Dose Route Start Last Admin Trade Name Freq PRN Reason Stop Dose Admin Acetaminophen 650 mg 08/05/20 18:37 Acetaminophen 325 Mg Tablet PO Q6H PRN Pain, Mild (Pain Scale 1-3) Enoxaparin Sodium 40 mg 08/05/20 20:00 08/06/20 20:02 Enoxaparin Sodium 40 Mg/0.4 Ml Syringe SUBCUT 40 mg Q24H EMORY Administration Famotidine 20 mg 08/05/20 21:00 08/07/20 08:52 Famotidine/Pf 20 Mg/2 Ml Vial IVPUSH 20 mg BID EMORY Administration Hydroxyzine HCl 25 mg 08/06/20 10:39 Hydroxyzine Hcl 25 Mg Tablet PO Q6H PRN Opiate Withdrawal Medication 1 each 08/05/20 15:00 No Benzodiazepines MISCELLANE DAILY [facility] Protocol Ondansetron HCl 4 mg 08/05/20 18:37 Ondansetron Hcl 4 Mg/2 Ml Vial IVPUSH Q8H PRN Nausea and Vomiting Pharmacy Consult 1 each 08/05/20 12:09 Consult Rx Perform Med Rec MISCELLANE ONCE PRN Consult order Phenobarbital 45 mg 08/06/20 09:00 08/07/20 08:52 Phenobarbital 15 Mg Tablet PO 08/07/20 21:01 45 mg BID EMORY Administration Phenobarbital 15 mg 08/08/20 09:00 Phenobarbital 15 Mg Tablet PO 08/09/20 21:01 BID EMORY Phenobarbital 15 mg 08/10/20 09:00 Phenobarbital 15 Mg Tablet PO 08/13/20 09:01 DAILY EM[facility] Potassium Chloride 40 meq 08/06/20 09:00 08/07/20 08:52 Potassium Chloride Er 10 Meq Capsule.Er PO 40 meq Q6H EMORY Administration Sodium Chloride 3 ml 08/05/20 18:37 08/07/20 08:52 0.9 % Sodium Chloride Flush 3 Ml Syringe IVFLUSH 3 ml QSHIFT EMORY Administration Time Spent With Patient Time: Total time spent is greater than 50% in coordination of care (as do cumented) at patient's floor/unit and/or counseling patient: Time with patient: less than 15 minutes
--- NOTE | 2020-08-07 13:30 | P.PNIM_ITS ---
Subjective Subjective Date of Service: 08/07/20 Interval History: Seen in f/u alcohol withdrawal and agitation in setting of chronic heroin use. No agitation, cooperating, BP on high side Physical Exam Vital Signs: Vital Signs: Last Vital Signs Temp 97.3 F 08/07/20 12:00 Pulse 86 08/07/20 12:00 Resp 20 08/07/20 12:00 BP 173/85 H 08/07/20 12:00 Pulse Ox 99 08/07/20 12:00 Body Mass Index 50.5 General: AO X 3, no acute distress Resp: CTA bilateral CVS: S1,S2,RRR GI: +BS, NT, no distention Skin: No rash Neuro: motor grossly intact, mild tremors Psych: appropriate affect Objective Data Current Medications Generic Name Dose Route Start Last Admin Trade Name Freq PRN Reason Stop Dose Admin Acetaminophen 650 mg 08/05/20 18:37 Acetaminophen 325 Mg Tablet PO Q6H PRN Pain, Mild (Pain Scale 1-3) Amlodipine Besylate 5 mg 08/07/20 13:30 Amlodipine Besylate 5 Mg Tablet PO DAILY [facility] Protocol Enoxaparin Sodium 40 mg 08/05/20 20:00 08/06/20 20:02 Enoxaparin Sodium 40 Mg/0.4 Ml Syringe SUBCUT 40 mg Q24H EMORY Administration Famotidine 20 mg 08/05/20 21:00 08/07/20 08:52 Famotidine/Pf 20 Mg/2 Ml Vial IVPUSH 20 mg BID EMORY Administration Hydroxyzine HCl 25 mg 08/06/20 10:39 Hydroxyzine Hcl 25 Mg Tablet PO Q6H PRN Opiate Withdrawal Medication 1 each 08/05/20 15:00 No Benzodiazepines MISCELLANE DAILY [facility] Protocol Ondansetron HCl 4 mg 08/05/20 18:37 Ondansetron Hcl 4 Mg/2 Ml Vial IVPUSH Q8H PRN Nausea and Vomiting Pharmacy Consult 1 each 08/05/20 12:09 Consult Rx Perform Med Rec MISCELLANE ONCE PRN Consult order Phenobarbital 45 mg 08/06/20 09:00 08/07/20 08:52 Phenobarbital 15 Mg Tablet PO 08/07/20 21:01 45 mg BID EMORY Administration Phenobarbital 15 mg 08/08/20 09:00 Phenobarbital 15 Mg Tablet PO 08/09/20 21:01 BID EMORY Phenobarbital 15 mg 08/10/20 09:00 Phenobarbital 15 Mg Tablet PO 08/13/20 09:01 DAILY [facility] Potassium Chloride 40 meq 08/06/20 09:00 08/07/20 08:52 Potassium Chloride Er 10 Meq Capsule.Er PO 40 meq Q6H EMORY Administration Sodium Chloride 3 ml 08/05/20 18:37 08/07/20 08:52 0.9 % Sodium Chloride Flush 3 Ml Syringe IVFLUSH 3 ml QSHIFT EMORY Administration Labs CBC & Chem 7: 08/06/20 05:47 08/06/20 18:02 Assessment and Plan (1) Alcohol withdrawal: Problem details: On phenobarbital protocol. To receive 1 additional dose tonight. Status: Acute (2) Substance abuse: Status: Acute Assessment and Plan: 64-year-old gentleman with history of chronic alcoholism, presented to [facility] due to nausea, vomiting, abdominal discomfort along with anxiety and tremors, likely related to alcohol withdrawal. PROBLEM LIST: 1. Alcohol dependency and now withdrawal. Got additional Phenobarb tomorrow -continue phenobarb per protocol -vitamin replacement -replece electrolytes Nausea, vomiting, and abdominal pain, likely related to gastritis/gastropathy,and narcotics and low K related ileus. The CAT scan of abdomen is showed fluid-filled stomach and small bowel with no transition zone or change in caliber suggestive of obstruction. There is mild diffuse wall thickening of the colon with concern for colitis, although the patient has no fever or chills. No lower abdominal discomfort. Symptomatically better. Surgery recommend monitoring and if symptoms recur will try NGT Prolonged QT. likely from abnormal electrolytes, QTc today is 471 History of IV drug use. 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 We will Continue Atarax, clonidine, and will obtain Care team consult before d/c Deep vein thrombosis prophylaxis. Levenox History of hypertension. BP remains consistently high, start Norvasc 5 History of hypokalemia acute on chronic, replace. check level tomorrow Code status discussed. The patient wishes to be a full code.
[2020-08-07] MEDS: amLODIPine Besylate 5 MG TABLET PO (13:44)
[2020-08-07 14:22] LABS: Anion Gap 14 (12-20); Carbon Dioxide 23 mmol/L (22-29); Chloride 103 mmol/L (96-108); Potassium 4.9 mmol/l (3.3-5.1); Sodium 135 mmol/L (135-145)
[2020-08-07] MEDS: Enoxaparin Sodium 40 MG/0.4 ML SYRINGE SUBCUT (21:21)
[2020-08-08] VITALS (7 sets, daily range): BP systolic 110–143; BP diastolic 55–67; PULSE 73–88; RESP 18–20; TEMP 37–37.4; O2SAT 96–100
--- NOTE | 2020-08-08 | XR_ITS ---
EXAMINATION: XR ABDOMEN KUB CLINICAL INDICATION: Gastric distention, follow-up. COMPARISON: CT scan of the abdomen and pelvis dated 08/05/2020. TECHNIQUE: AP view of the abdomen. FINDINGS: Mild gas filled gastric distention is seen. Mildly dilated gas-filled loops of small bowel are seen in the left midabdomen measuring up to 3.7 cm. Gas and stool are seen distally to the rectum. Moderate to severe atherosclerosis is seen in the abdominal aorta and iliac vessels. Mild to moderate bilateral hip degenerative joint changes are seen with cam femoral acetabular impingement. XR/XR KUB IMPRESSION: 1. Interval decrease in gastric gaseous distention. 2. Mildly dilated gas-filled loops of small bowel in the left abdomen demonstrates similar caliber to the CT scan.
[2020-08-08] MEDS: amLODIPine Besylate 5 MG TABLET PO (08:07)
[2020-08-08] MEDS: PHENobarbitaL 15 MG TABLET PO ×2 (08:07→21:49)
[2020-08-08] MEDS: 0.9 % Sodium Chloride Flush 3 ML SYRINGE IVFLUSH ×3 (08:08→21:49)
[2020-08-08] MEDS: Famotidine/PF 20 MG/2 ML VIAL IVPUSH ×2 (08:08→21:49)
--- NOTE | 2020-08-08 08:45 | PM.PNGS ---
Subjective Subjective Date of Service: 08/08/20 Interval history: Somnolent. Somewhat arousable but falls back to sleep quickly. Denies pain at rest. Physical Exam Vital Signs: Vital Signs: Last Vital Signs Temp 98.7 F 08/08/20 08:00 Pulse 88 08/08/20 08:07 Resp 20 08/08/20 08:00 BP 110/61 08/08/20 08:07 Pulse Ox 96 08/08/20 08:00 Body Mass Index 50.5 Const: General: patient obtunded Orientation/consciousness: patient obtunded Resp: Auscultation: clear to auscultation bilaterally Cardio: Rate: regular rate Rhythm: regular rhythm GI: Other: Soft, less distended, bowel sounds active, tender to palpation Neuro: General: patient obtunded Progress Note: A&P Assessment and plan (1) Abnormal CT scan: Problem details: Scan showed mildly dilated stomach and proximal small bowel without transition zone. Examination reveals decreased distension, but he appears tender today. Status: Acute Assessment and Plan: Assessment is difficult due to mental status. Will obtain a CBCD, BMP and KUB for further assessment. Fall Risk Details Current Medications: Current Medications Generic Name Dose Route Start Last Admin Trade Name Freq PRN Reason Stop Dose Admin Acetaminophen 650 mg 08/05/20 18:37 Acetaminophen 325 Mg Tablet PO Q6H PRN Pain, Mild (Pain Scale 1-3) Amlodipine Besylate 5 mg 08/07/20 13:30 08/08/20 08:07 Amlodipine Besylate 5 Mg Tablet PO 5 mg DAILY [facility] Administration Protocol Enoxaparin Sodium 40 mg 08/05/20 20:00 08/07/20 21:21 Enoxaparin Sodium 40 Mg/0.4 Ml Syringe SUBCUT 40 mg Q24H [facility] Administration Famotidine 20 mg 08/05/20 21:00 08/08/20 08:08 Famotidine/Pf 20 Mg/2 Ml Vial IVPUSH 20 mg BID EMORY Administration Hydroxyzine HCl 25 mg 08/06/20 10:39 Hydroxyzine Hcl 25 Mg Tablet PO Q6H PRN Opiate Withdrawal Medication 1 each 08/05/20 15:00 No Benzodiazepines MISCELLANE DAILY [facility] Protocol Ondansetron HCl 4 mg 08/05/20 18:37 Ondansetron Hcl 4 Mg/2 Ml Vial IVPUSH Q8H PRN Nausea and Vomiting Pharmacy Consult 1 each 08/05/20 12:09 Consult Rx Perform Med Rec MISCELLANE ONCE PRN Consult order Phenobarbital 15 mg 08/08/20 09:00 08/08/20 08:07 Phenobarbital 15 Mg Tablet PO 08/09/20 21:01 15 mg BID EMORY Administration Phenobarbital 15 mg 08/10/20 09:00 Phenobarbital 15 Mg Tablet PO 08/13/20 09:01 DAILY [facility] Sodium Chloride 3 ml 08/05/20 18:37 08/08/20 08:08 0.9 % Sodium Chloride Flush 3 Ml Syringe IVFLUSH 3 ml QSHIFT EMORY Administration Time Spent With Patient Time: Total time spent is greater than 50% in coordination of care (as documented) at patient's floor/unit and/or counseling patient: Time with patient: less than 15 minutes
[2020-08-08] MEDS: hydrOXYzine HCL 25 MG TABLET PO (10:05)
[2020-08-08 10:19] LABS: MANUAL DIFF FLAG NO
[2020-08-08 10:28] LABS: Basophils Absolute Auto 0.1 X10*3/uL (0.0-0.2); Basophils Percent Auto 1.3 % (0-2); Eosinophils Percent Auto 0.3 % (0-4); Hemoglobin 14.2 g/dl (14.0-18.0); Imm Gran Abs Auto 0.02 X10*3/uL (0.00-0.03); Imm Gran Pct Auto 0.2 % (0.0-0.4); Lymphocytes Absolute Auto 1.7 X10*3/uL (1.2-4.9); Lymphocytes Percent Auto 19.9 % (20-40); Mean Corpuscular Hemoglobin 31.8 pg (27.0-33.0); Mean Corpuscular Volume 96.4 fL (80-98); Mean Platelet Volume 10.4 fL (9.4-12.4); Monocytes Absolute Auto 0.7 X10*3/uL (0.1-1.2); Monocytes Percent Auto 8.4 % (2-11); Neutrophils Absolute Auto 6.1 X10*3/uL (2.0-8.3); Neutrophils Percent Auto 69.9 % (45-73); Platelet Count 239 X10*3/uL (160-400); Red Blood Count 4.46 X10*6/uL (4.60-5.80); Red Cell Distribution Width 14.1 % (11.0-16.0); White Blood Count 8.7 X10*3/uL (4.8-10.8)
--- NOTE | 2020-08-08 10:35 | MHC.CARE ---
Recovery Support note: Patient is a 64 year old Dominican speaking male who presented [place] [facility] due to n/v/d and was medically admitted. Patient was laying in a hospital bed sleeping when this radio script writer entered the room; patient awoke easily when his name was spoken. This radio script writer attempted to discuss patient's substance use and recovery however patient was somewhat confused and tangential. Patient reports he is not interested in stopping his drug and alcohol use, however he would consider cutting back on the amount he uses. Patient denies having past attempts at sobriety however indicated that he has tried AA groups in the past but did not elaborate on whether he found them helpful. Patient acknowledged that the substance use was detrimental to his health, however he stated he would rather than stop using. Patient reported I just don't care anymore. Patient adamantly denies having thoughts to harm himself. Explained to patient that it would be in the best interest of his health to consider cutting back heavily on his substance use and that there is help available if he chooses to. Discussed case with RN. Contact the CARE Team at [phone] if patient is interested in discussing substance use and mental health supports when he is less confused. If patient remains in the hospital until Tuesday, this radio script writer will check in with patient again at that point in time.
[2020-08-08 10:49] LABS: Anion Gap 14 (12-20); Blood Urea Nitrogen 10 mg/dL (9-16); Calcium 8.7 mg/dL (8.4-10.2); Carbon Dioxide 23 mmol/L (22-29); Chloride 102 mmol/L (96-108); Creatinine Clr Calc Pharmacy 157.8; Estimated Glomerular Filt Rate > 60; Glucose Random 159 mg/dL (60-115); Magnesium 2.3 mg/dL (1.6-2.6); Potassium 4.1 mmol/l (3.3-5.1); Sodium 135 mmol/L (135-145)
--- NOTE | 2020-08-08 13:51 | HO.PM.IMPN ---
Subjective Subjective Date of Service: 08/08/20 Interval History: Seen in f/u alcohol withdrawal and agitation. Calm today, coherent, no abdominal pain. He reports some diarrhea yeserday Review of Systems Gen: no fever Resp: no sob, no cough CV: no chest, no MAHAN, no leg edema GI: No n/v, no abd pain, +diarrhea Neuro: No confusion Physical Exam Vital Signs: Vital Signs: Last Vital Signs Temp 98.9 F 08/08/20 12:00 Pulse 74 08/08/20 12:45 Resp 18 08/08/20 12:00 BP 130/67 08/08/20 12:45 Pulse Ox 100 08/08/20 12:45 Body Mass Index 50.5 General: AO X 3, no acute distress Resp: CTA bilateral CVS: S1,S2,RRR GI: +BS, NT, no distention Skin: No rash Neuro: motor grossly intact, mild tremors Psych: appropriate affect Objective Data Current Medications Generic Name Dose Route Start Last Admin Trade Name Freq PRN Reason Stop Dose Admin Acetaminophen 650 mg 08/05/20 18:37 Acetaminophen 325 Mg Tablet PO Q6H PRN Pain, Mild (Pain Scale 1-3) Amlodipine Besylate 5 mg 08/07/20 13:30 08/08/20 08:07 Amlodipine Besylate 5 Mg Tablet PO 5 mg DAILY EMORY Administration Protocol Enoxaparin Sodium 40 mg 08/05/20 20:00 08/07/20 21:21 Enoxaparin Sodium 40 Mg/0.4 Ml Syringe SUBCUT 40 mg Q24H EMORY Administration Famotidine 20 mg 08/05/20 21:00 08/08/20 08:08 Famotidine/Pf 20 Mg/2 Ml Vial IVPUSH 20 mg BID EMORY Administration Hydroxyzine HCl 25 mg 08/06/20 10:39 08/08/20 10:05 Hydroxyzine Hcl 25 Mg Tablet PO 25 mg Q6H PRN Administration Opiate Withdrawal Medication 1 each 08/05/20 15:00 No Benzodiazepines MISCELLANE DAILY EMORY Protocol Ondansetron HCl 4 mg 08/05/20 18:37 Ondansetron Hcl 4 Mg/2 Ml Vial IVPUSH Q8H PRN Nausea and Vomiting Pharmacy Consult 1 each 08/05/20 12:09 Consult Rx Perform Med Rec MISCELLANE ONCE PRN Consult order Phenobarbital 15 mg 08/08/20 09:00 08/08/20 08:07 Phenobarbital 15 Mg Tablet PO 08/09/20 21:01 15 mg BID EMORY Administration Phenobarbital 15 mg 08/10/20 09:00 Phenobarbital 15 Mg Tablet PO 08/13/20 09:01 DAILY EMORY Sodium Chloride 3 ml 08/05/20 18:37 08/08/20 08:08 0.9 % Sodium Chloride Flush 3 Ml Syringe IVFLUSH 3 ml QSHIFT EMORY Administration Labs CBC & Chem 7: 08/08/20 10:06 08/08/20 10:06 Assessment and Plan (1) Alcohol withdrawal: Problem details: On phenobarbital protocol. To receive 1 additional dose tonight. Status: Acute (2) Substance abuse: Status: Acute Assessment and Plan: 64-year-old gentleman with history of chronic alcoholism, presented to [facility] due to nausea, vomiting, abdominal discomfort along with anxiety and tremors, likely related to alcohol withdrawal. PROBLEM LIST: 1. Alcohol dependency and now withdrawal. Doint well -continue phenobarb per protocol -vitamin replacement -replece electrolytes Nausea, vomiting, and abdominal pain, likely related to gastritis/gastropathy,and narcotics and low K related ileus. The CAT scan of abdomen is showed fluid-filled stomach and small bowel with no transition zone or change in caliber suggestive of obstruction. There is mild diffuse wall thickening of the colon with concern for colitis, although the patient has no fever or chills. KUB today 08/08: 1. Interval decrease in gastric gaseous distention. 2. Mildly dilated gas-filled loops of small bowel in the left abdomendemonstrates similar caliber to the CT scan. No lower abdominal discomfort. Symptomatically better. Surgery recommend monitoring and if symptoms recur will try NGT, seem to be tolerating liquid diet and will heed surgery advise to advance it Prolonged QT. likely from abnormal electrolytes, QTc on 08/07 = 471 History of IV drug use. 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 We will Continue Atarax, clonidine, and will obtain Care team consult before d/c Deep vein thrombosis prophylaxis. Levenox History of hypertension. Normal, continue Norvasc 5 started on 08/07 History Hypokalemia, corrected, mag is nrmal Code status discussed. The patient wishes to be a full code. Discussed with son Jaime
[2020-08-08] MEDS: Enoxaparin Sodium 40 MG/0.4 ML SYRINGE SUBCUT (20:24)
[2020-08-09] VITALS (8 sets, daily range): BP systolic 93–145; BP diastolic 54–65; PULSE 60–81; RESP 16–18; TEMP 36.4–36.9; O2SAT 97–99
[2020-08-09] MEDS: Famotidine/PF 20 MG/2 ML VIAL IVPUSH ×2 (08:33→21:26)
[2020-08-09] MEDS: amLODIPine Besylate 5 MG TABLET PO (08:33)
[2020-08-09] MEDS: PHENobarbitaL 15 MG TABLET PO ×2 (08:34→21:26)
[2020-08-09] MEDS: 0.9 % Sodium Chloride Flush 3 ML SYRINGE IVFLUSH ×3 (08:34→21:27)
--- NOTE | 2020-08-09 12:06 | P.PNIM_ITS ---
Subjective Subjective Date of Service: 08/09/20 Interval History: Seen in f/u for alcohol withdrawal, ileus. Better. No abdominal pain, toleraing regular diet Review of Systems no withdrawal symptoms no abdominal pain no fever Physical Exam Vital Signs: Vital Signs: Selected Entries 08/09/20 11:42 Temperature 98.0 F Pulse Rate 75 Respiratory Rate 18 Blood Pressure 145/57 H Pulse Oximetry 97 Oxygen Delivery Me thod Room Air General: AO X 3, no acute distress Resp: CTA bilateral CVS: S1,S2,RRR GI: +BS, NT, no distention Skin: No rash Neuro: motor grossly intact Psych: appropriate affect Objective Data Current Medications Generic Name Dose Route Start Last Admin Trade Name Freq PRN Reason Stop Dose Admin Acetaminophen 650 mg 08/05/20 18:37 Acetaminophen 325 Mg Tablet PO Q6H PRN Pain, Mild (Pain Scale 1-3) Amlodipine Besylate 5 mg 08/07/20 13:30 08/11/20 10:12 Amlodipine Besylate 5 Mg Tablet PO 5 mg DAILY EMORY Administration Protocol Enoxaparin Sodium 40 mg 08/05/20 20:00 08/10/20 21:17 Enoxaparin Sodium 40 Mg/0.4 Ml Syringe SUBCUT 40 mg Q24H EMORY Administration Famotidine 20 mg 08/05/20 21:00 08/11/20 10:12 Famotidine/Pf 20 Mg/2 Ml Vial IVPUSH 20 mg BID EMORY Administration Hydroxyzine HCl 25 mg 08/06/20 10:39 08/08/20 10:05 Hydroxyzine Hcl 25 Mg Tablet PO 25 mg Q6H PRN Administration Opiate Withdrawal Medication 1 each 08/05/20 15:00 No Benzodiazepines MISCELLANE DAILY EMORY Protocol Ondansetron HCl 4 mg 08/05/20 18:37 Ondansetron Hcl 4 Mg/2 Ml Vial IVPUSH Q8H PRN Nausea and Vomiting Pharmacy Consult 1 each 08/05/20 12:09 Consult Rx Perform Med Rec MISCELLANE ONCE PRN Consult order Phenobarbital 15 mg 08/10/20 09:00 08/11/20 10:12 Phenobarbital 15 Mg Tablet PO 08/13/20 09:01 15 mg DAILY EMORY Administration Sodium Chloride 3 ml 08/05/20 18:37 08/11/20 10:13 0.9 % Sodium Chloride Flush 3 Ml Syringe IVFLUSH 3 ml QSHIFT EMORY Administration Labs CBC & Chem 7: 08/08/20 10:06 08/08/20 10:06 Assessment and Plan (1) Alcohol withdrawal: Status: Acute (2) Substance abuse: Status: Acute (3) Gastroenteritis: Status: Acute (4) Hypertension: Status: Acute Assessment and Plan: 64-year-old gentleman with history of chronic alcoholism, presented to [facility] due to nausea, vomiting, abdominal discomfort along with anxiety and tremors, likely related to alcohol withdrawal. PROBLEM LIST: 1. Alcohol dependency and now withdrawal. No sing of withdrawal at this timel -continue phenobarb per protocol -vitamin replacement -replece electrolytes Nausea, vomiting, and abdominal pain, likely related to gastritis/gastropathy,and narcotics and low K related ileus. CAT scan of abdomen showed fluid-filled stomach and small bowel with no transition zone or change in caliber suggestive of obstruction. There is mild diffuse wall thickening of the colon with concern for colitis, although the patient has no fever or chills. KUB 08/08: 1. Interval decrease in gastric gaseous distention. 2. Mildly dilated gas-filled loops of small bowel in the left abdomendemonstrates similar caliber to the CT scan. No lower abdominal discomfort. Diet is being advanced by surgery Prolonged QT. likely from abnormal electrolytes, QTc on 08/07 = 471 History of IV drug use. 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 We will Continue Atarax, clonidine, and will obtain Care team consult before d/c Deep vein thrombosis prophylaxis. Levenox History of hypertension. Normal, continue Norvasc 5 started on 08/07 History Hypokalemia, corrected, mag is nrmal Weak so getting PT eval for safe discharge This is a late entry note from 08/09/20
--- NOTE | 2020-08-09 12:11 | PM.PNGS ---
Subjective Subjective Date of Service: 08/09/20 Interval history: Awake, reports that he does not feel well, but other than feeling cold, no particular complaints. Denies abdominal pain. Not hungry. Physical Exam Vital Signs: Vital Signs: Last Vital Signs Temp 98.0 F 08/09/20 11:42 Pulse 75 08/09/20 11:42 Resp 18 08/09/20 11:42 BP 145/57 H 08/09/20 11:42 Pulse Ox 97 08/09/20 11:42 Body Mass Index 50.5 Const: Other: Alert, appears comfortable, not in distress GI: Other: Soft, nondistended, active bowel sounds, mild diffuse tenderness Progress Note: A&P Assessment and plan (1) Abnormal CT scan: Problem details: No evidence of partial small-bowel obstruction clinically. Distension resolved. Status: Acute Assessment and Plan: Still has some mild intermittent abdominal tenderness and loose stool. May be related to withdrawal. No clinical evidence of acute surgical process. On regular diet. Fall Risk Details Current Medications: Current Medications Generic Name Dose Route Start Last Admin Trade Name Freq PRN Reason Stop Dose Admin Acetaminophen 650 mg 08/05/20 18:37 Acetaminophen 325 Mg Tablet PO Q6H PRN Pain, Mild (Pain Scale 1-3) Amlodipine Besylate 5 mg 08/07/20 13:30 08/09/20 08:33 Amlodipine Besylate 5 Mg Tablet PO 5 mg DAILY EMORY Administration Protocol Enoxaparin Sodium 40 mg 08/05/20 20:00 08/08/20 20:24 Enoxaparin Sodium 40 Mg/0.4 Ml Syringe SUBCUT 40 mg Q24H EMORY Administration Famotidine 20 mg 08/05/20 21:00 08/09/20 08:33 Famotidine/Pf 20 Mg/2 Ml Vial IVPUSH 20 mg BID EMORY Administration Hydroxyzine HCl 25 mg 08/06/20 10:39 08/08/20 10:05 Hydroxyzine Hcl 25 Mg Tablet PO 25 mg Q6H PRN Administration Opiate Withdrawal Medication 1 each 08/05/20 15:00 No Benzodiazepines MISCELLANE DAILY EMORY Protocol Ondansetron HCl 4 mg 08/05/20 18:37 Ondansetron Hcl 4 Mg/2 Ml Vial IVPUSH Q8H PRN Nausea and Vomiting Pharmacy Consult 1 each 08/05/20 12:09 Consult Rx Perform Med Rec MISCELLANE ONCE PRN Consult order Phenobarbital 15 mg 08/08/20 09:00 08/09/20 08:34 Phenobarbital 15 Mg Tablet PO 08/09/20 21:01 15 mg BID EMORY Administration Phenobarbital 15 mg 08/10/20 09:00 Phenobarbital 15 Mg Tablet PO 08/13/20 09:01 DAILY EMORY Sodium Chloride 3 ml 08/05/20 18:37 08/09/20 08:34 0.9 % Sodium Chloride Flush 3 Ml Syringe IVFLUSH 3 ml QSHIFT EMORY Administration Time Spent With Patient Time: Total time spent is greater than 50% in coordination of care (as documented) at patient's floor/unit and/or counseling patient: Time with patient: less than 15 minutes
--- NOTE | 2020-08-09 18:39 | PC.NURSE ---
Ambulated pt to bathroom, pt needed to be wheeled back to bed. sat in chair for a little before getting back to bed. Pt A&O x3, knew date. Pt inc of liquid brown BM, upset that it keeps happening to him. Educated that it was part of w/d.
[2020-08-09] MEDS: Enoxaparin Sodium 40 MG/0.4 ML SYRINGE SUBCUT (19:35)
[2020-08-10] VITALS (7 sets, daily range): BP systolic 104–147; BP diastolic 53–68; PULSE 65–78; RESP 16–18; TEMP 36.6–37.3; O2SAT 94–100
[2020-08-10] MEDS: PHENobarbitaL 15 MG TABLET PO (08:58)
[2020-08-10] MEDS: amLODIPine Besylate 5 MG TABLET PO (08:58)
[2020-08-10] MEDS: 0.9 % Sodium Chloride Flush 3 ML SYRINGE IVFLUSH ×2 (08:59→16:38)
[2020-08-10] MEDS: Famotidine/PF 20 MG/2 ML VIAL IVPUSH ×2 (08:59→21:17)
--- NOTE | 2020-08-10 09:59 | HO.PM.IMPN ---
Subjective Subjective Date of Service: 08/10/20 Interval History: Seen in f/u for alcohol withdrawal, ileus. Better. No abdominal pain, toleraing regular diet Review of Systems no withdrawal symptoms no abdominal pain no fever Cardiovascular Cardiovascular: Denies chest pain and Denies irregular heart rhythm Respiratory Respiratory: Denies cough and Denies wheezing Allergic/Immunologic Allergic/Immunologic: Denies wheezing Physical Exam Vital Signs: Vital Signs: Selected Entries 08/10/20 08:00 Temperature 98.5 F Pulse Rate 65 Respiratory Rate 16 Blood Pressure 106/53 L Pulse Oximetry 95 Oxygen Delivery Me thod Room Air General: AO X 3, no acute distress Resp: CTA bilateral CVS: S1,S2,RRR GI: +BS, NT, no distention Skin: No rash Neuro: motor grossly intact Psych: appropriate affect Objective Data Current Medications Generic Name Dose Route Start Last Admin Trade Name Freq PRN Reason Stop Dose Admin Acetaminophen 650 mg 08/05/20 18:37 Acetaminophen 325 Mg Tablet PO Q6H PRN Pain, Mild (Pain Scale 1-3) Amlodipine Besylate 5 mg 08/07/20 13:30 08/11/20 10:12 Amlodipine Besylate 5 Mg Tablet PO 5 mg DAILY EMORY Administration Protocol Enoxaparin Sodium 40 mg 08/05/20 20:00 08/10/20 21:17 Enoxaparin Sodium 40 Mg/0.4 Ml Syringe SUBCUT 40 mg Q24H EMORY Administration Famotidine 20 mg 08/05/20 21:00 08/11/20 10:12 Famotidine/Pf 20 Mg/2 Ml Vial IVPUSH 20 mg BID EMORY Administration Hydroxyzine HCl 25 mg 08/06/20 10:39 08/08/20 10:05 Hydroxyzine Hcl 25 Mg Tablet PO 25 mg Q6H PRN Administration Opiate Withdrawal Medication 1 each 08/05/20 15:00 No Benzodiazepines MISCELLANE DAILY EMORY Protocol Ondansetron HCl 4 mg 08/05/20 18:37 Ondansetron Hcl 4 Mg/2 Ml Vial IVPUSH Q8H PRN Nausea and Vomiting Pharmacy Consult 1 each 08/05/20 12:09 Consult Rx Perform Med Rec MISCELLANE ONCE PRN Consult order Phenobarbital 15 mg 08/10/20 09:00 08/11/20 10:12 Phenobarbital 15 Mg Tablet PO 08/13/20 09:01 15 mg DAILY EMORY Administration Sodium Chloride 3 ml 08/05/20 18:37 08/11/20 10:13 0.9 % Sodium Chloride Flush 3 Ml Syringe IVFLUSH 3 ml QSHIFT EMORY Administration Labs CBC & Chem 7: 08/08/20 10:06 08/08/20 10:06 Assessment and Plan (1) Alcohol withdrawal: Status: Acute (2) Substance abuse: Status: Acute Assessment and Plan: 64-year-old gentleman with history of chronic alcoholism, presented to [facility] due to nausea, vomiting, abdominal discomfort along with anxiety and tremors, likely related to alcohol withdrawal. PROBLEM LIST: 1. Alcohol dependency and now withdrawal. No sing of withdrawal at this timel -continue phenobarb per protocol -vitamin replacement -replece electrolytes Nausea, vomiting, and abdominal pain, likely related to gastritis/gastropathy,and narcotics and low K related ileus. The CAT scan of abdomen is showed fluid-filled stomach and small bowel with no transition zone or change in caliber suggestive of obstruction. There is mild diffuse wall thickening of the colon with concern for colitis, although the patient has no fever or chills. KUB today 08/08: 1. Interval decrease in gastric gaseous distention. 2. Mildly dilated gas-filled loops of small bowel in the left abdomendemonstrates similar caliber to the CT scan. No lower abdominal discomfort. Symptomatically better. Diet advanced to solid diet and he is tolerating. Prolonged QT. likely from abnormal electrolytes, QTc on 08/07 = 471 History of IV drug use. 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 We will Continue Atarax, clonidine, and will obtain Care team consult before d/c Deep vein thrombosis prophylaxis. Levenox History of hypertension. Normal, continue Norvasc 5 started on 08/07 History Hypokalemia, corrected, mag is nrmal PT recommend STR but he is not interested, he seems to be doing much better when I walked him, PT can reassess in the morning for perhaps home with home PT This is late entry from 08/10
[2020-08-10] MEDS: Enoxaparin Sodium 40 MG/0.4 ML SYRINGE SUBCUT (21:17)
--- NOTE | 2020-08-10 22:04 | PC.NURSE ---
Pt wanting to go home, ambulating more steady than previous Day. said dc tomorrow. Pt ok with the answer. Up to recliner for morning, ambulates with standby assist. PT eating more than previous day. Repos self
[2020-08-11] VITALS: BP 101/54; PULSE 74; RESP 16; TEMP 37.2; O2SAT 96
[2020-08-11] MEDS: 0.9 % Sodium Chloride Flush 3 ML SYRINGE IVFLUSH ×2 (00:22→10:13)
[2020-08-11 04:00] VITALS: BP 110/60; PULSE 58; RESP 16; TEMP 37.1; O2SAT 97
[2020-08-11 08:00] VITALS: BP 114/56; PULSE 65; RESP 18; TEMP 36.4; O2SAT 97
--- NOTE | 2020-08-11 09:41 | MHC.RECOVSUP ---
Recovery Support note: This blurb writer met with patient again to discuss substance use and recovery resources. Patient now reports a desire to stop using drugs and alcohol, stating I have to. Patient acknowledges the toll his substance use is taking on his health. Reports he has made efforts to stop using in the past and that there are a lot of support groups near him that he can attend. Discussed earlier recovery and relapse prevention with patient. Patient provided with information on AA, IOP and [facility] for [facility]. Patient reports he has done an IOP in the past however he was willing to consider doing one again. Encouraged patient to fill his time with structure and to reach out to friends and family for support. Patient reports using heroin in addition to alcohol. Patient reports that he has been getting Fentanyl and he acknowledges how dangerous it is. Discussed consultation with patient's RN, Camila.
[2020-08-11 10:12] VITALS: BP 114/56; PULSE 65
[2020-08-11] MEDS: Famotidine/PF 20 MG/2 ML VIAL IVPUSH (10:12)
[2020-08-11] MEDS: PHENobarbitaL 15 MG TABLET PO (10:12)
[2020-08-11] MEDS: amLODIPine Besylate 5 MG TABLET PO (10:12)
--- NOTE | 2020-08-11 10:24 | P.PNGS_ITS ---
Subjective Subjective Date of Service: 08/11/20 Interval history: Alert, feels better though appetite still is poor. Has been up ambulating. Looking for to discharge. 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 He reports discomfort associated with it, but generally wears an abdominal binder and feels more comfortable with one on. He has seen Dr. Catrina Hutson at [facility] to discuss repair of the incisional hernia but is not sure that he wants to go through the procedure. Status: Acute Assessment and Plan: We discussed the risks of having an incisional hernia. He has a large defect, which likely places him at lower risk for incarceration. He does have significant discomfort associated with the hernia, but is able to manage this fairly well with an abdominal binder. He is concerned about possible loss of mobility and tightness of his abdominal wall if he does have a successful repair done because of the size of the mesh that would be required for the repair. It does not appear that there is any urgency regarding repair. His associated problems related to substance use are of more concern. He agrees with this and plans to concentrate on recovery. Fall Risk Details Current Medications: Current Medications Generic Name Dose Route Start Last Admin Trade Name Cornelio PRN Reason Stop Dose Admin Acetaminophen 650 mg 08/05/20 18:37 Acetaminophen 325 Mg Tablet PO Q6H PRN Pain, Mild (Pain Scale 1-3) Amlodipine Besylate 5 mg 08/07/20 13:30 08/11/20 10:12 Amlodipine Besylate 5 Mg Tablet PO 5 mg DAILY EMORY Administration Protocol Enoxaparin Sodium 40 mg 08/05/20 20:00 08/10/20 21:17 Enoxaparin Sodium 40 Mg/0.4 Ml Syringe SUBCUT 40 mg Q24H EMORY Administration Famotidine 20 mg 08/05/20 21:00 08/11/20 10:12 Famotidine/Pf 20 Mg/2 Ml Vial IVPUSH 20 mg BID EMORY Administration Hydroxyzine HCl 25 mg 08/06/20 10:39 08/08/20 10:05 Hydroxyzine Hcl 25 Mg Tablet PO 25 mg Q6H PRN Administration Opiate Withdrawal Medication 1 each 08/05/20 15:00 No Benzodiazepines MISCELLANE DAILY EMORY Protocol Ondansetron HCl 4 mg 08/05/20 18:37 Ondansetron Hcl 4 Mg/2 Ml Vial IVPUSH Q8H PRN Nausea and Vomiting Pharmacy Consult 1 each 08/05/20 12:09 Consult Rx Perform Med Rec MISCELLANE ONCE PRN Consult order Phenobarbital 15 mg 08/10/20 09:00 08/11/20 10:12 Phenobarbital 15 Mg Tablet PO 08/13/20 09:01 15 mg DAILY EMORY Administration Sodium Chloride 3 ml 08/05/20 18:37 08/11/20 10:13 0.9 % Sodium Chloride Flush 3 Ml Syringe IVFLUSH 3 ml QSHIFT EMORY Administration Time Spent With Patient Time: Total time spent is greater than 50% in coordination of care (as documented) at patient's floor/unit and/or counseling patient: Time with patient: less than 15 minutes
--- NOTE | 2020-08-11 10:58 | P.DS_ITS ---
DS: Providers Provider Date of admission: 08/05/20 15:10 Primary care physician: Unknown Physician Consults: 08/05/20 15:28 Consult to General Surgery Routine Consulting Provider: Jason Villatoro Reason for consultation: sbo Has provider been notified: No 08/06/20 10:41 Consult to Care Team Routine Comment: Reason for consultation: etoh and substance use DS: Diagnosis Discharge Diagnosis (1) Alcohol withdrawal: Status: Acute (2) Gastroenteritis: Status: Acute (3) Hypertension: Status: Acute DS: Medications Discharge Medications Home Medications: Home Medications Medication Instructions Recorded Confirmed omeprazole 1 cap PO DAILY 08/05/20 08/05/20 ondansetron HCl 1 tab PO Q6H PRN 08/05/20 08/05/20 potassium chloride 1 tab PO Q12H 08/05/20 08/05/20 Previous Rx's Medication Instructions Recorded amlodipine [Norvasc] 2.5 mg PO DAILY #30 tab 08/11/20 DS: Summary Hospital Course Hospital Course: Patient presented to the hospital with complaints of abdominal pain his workup in the emergency room showed possible ileus on the imaging studies. However he was noted to be in alcohol withdrawal and was subsequently started on phenobarbital per protocol. Care team was consulted and the appropriate resources were provided. General surgery was consulted for his intra-abdominal issues and recommended conservative management. Since symptoms over the course of his hospitalization improved and he has been able to tolerate a diet. He has been strongly discouraged any alcohol or substance abuse. In regards to his incisional hernia, follow-up with his surgeons at [facility] has been recommended. Time Spent with Patient Time attestation: Total time spent providing and/or coordinating discharge services: Physical Exam Vital Signs: Vital Signs: Last Vital Signs Temp 97.6 F 08/11/20 08:00 Pulse 65 08/11/20 10:12 Resp 18 08/11/20 08:00 BP 114/56 L 08/11/20 10:12 Pulse Ox 97 08/11/20 08:00 Body Mass Index 50.5 Const: Other: General - no acute distress, appears comfortable Cardiovascular - regular rate and rhythm, S1-S2 Lungs - normal respiratory effort, clear to auscultation bilaterally, no wheezing Abdomen - soft, nontender, no rebound or guarding Extremities - no edema bilaterally Neuro - awake and alert, no focal deficits DS: Data Data Completed and Pending Labs on day of discharge: Laboratory Last Values WBC 8.7 X10*3/uL (4.8-10.8) 08/08/20 10:06 RBC 4.46 X10*6/uL (4.60-5.80) L 08/08/20 10:06 Hgb 14.2 g/dl (14.0-18.0) 08/08/20 10:06 Hct 43.0 % (42-52) 08/08/20 10:06 MCV 96.4 fL (80-98) 08/08/20 10:06 MCH 31.8 pg (27.0-33.0) 08/08/20 10:06 MCHC 33.0 g/dl (31.0-36.0) 08/08/20 10:06 RDW 14.1 % (11.0-16.0) 08/08/20 10:06 Plt Count 239 X10*3/uL (160-400) 08/08/20 10:06 MPV 10.4 fL (9.4-12.4) 08/08/20 10:06 Immature Gran % (Auto) 0.2 % (0.0-0.4) 08/08/20 10:06 Neut % (Auto) 69.9 % (45-73) 08/08/20 10:06 Lymph % (Auto) 19.9 % (20-40) L 08/08/20 10:06 [place] % (Auto) 8.4 % (2-11) 08/08/20 10:06 Eos % (Auto) 0.3 % (0-4) 08/08/20 10:06 Baso % (Auto) 1.3 % (0-2) 08/08/20 10:06 Lymph # (Auto) 1.7 X10*3/uL (1.2-4.9) 08/08/20 10:06 [place] # (Auto) 0.7 X10*3/uL (0.1-1.2) 08/08/20 10:06 Eos # (Auto) 0.0 X10*3/uL (0.0-0.4) 08/08/20 10:06 Baso # (Auto) 0.1 X10*3/uL (0.0-0.2) 08/08/20 10:06 Abs Immat Gran (auto) 0.02 X10*3/uL (0.00-0.03) 08/08/20 10:06 Absolute Neuts (auto) 6.1 X10*3/uL (2.0-8.3) 08/08/20 10:06 Absolute Nucleated RBC 0.000 X10*3/uL (0.0-0.012) 08/08/20 10:06 Nucleated RBC % (auto) 0.0 /100WBC (0.0-0.2) 08/08/20 10:06 PT 12.7 SEC (10.8-13.0) 08/05/20 13:17 INR 1.1 (0.9-1.1) 08/05/20 13:17 APTT 29.4 SEC (24.1-38.0) 08/05/20 13:17 Sodium 135 mmol/L (135-145) 08/08/20 10:06 Potassium 4.1 mmol/l (3.3-5.1) 08/08/20 10:06 Chloride 102 mmol/L (96-108) 08/08/20 10:06 Carbon Dioxide 23 mmol/L (22-29) 08/08/20 10:06 Anion Gap 14 (-20) 08/08/20 10:06 BUN 10 mg/dL (9-16) D 08/08/20 10:06 Creatinine 0.74 mg/dL (0.5-1.4) 08/08/20 10:06 Estim Creat Clear Calc 157.8 08/08/20 10:06 Estimated GFR > 60 08/08/20 10:06 Random Glucose 159 mg/dL (60-115) H D 08/08/20 10:06 Lactic Acid 1.7 mmol/L (0.5-2.0) 08/05/20 13:16 Calcium 8.7 mg/dL (8.4-10.2) D 08/08/20 10:06 Magnesium 2.3 mg/dL (1.6-2.6) 08/08/20 10:06 Total Bilirubin 0.8 mg/dL (0.0-1.0) 08/05/20 13:17 AST 59 U/L (5-37) H 08/05/20 13:17 ALT 31 U/L (0-40) 08/05/20 13:17 Alkaline Phosphatase 153 U/L (39-117) H 08/05/20 13:17 Troponin I High Sens 7.6 ng/L (<3.5-35.0) 08/05/20 13:16 Total Protein 6.5 g/dL (6.5-8.0) 08/05/20 13:17 Albumin 3.6 g/dL (3.5-5.0) 08/05/20 13:17 Urine Color YELLOW 08/05/20 16:45 Urine Appearance CLEAR 08/05/20 16:45 Urine pH 7.0 (5.0-8.0) 08/05/20 16:45 Ur Specific [place] 1.020 (1.005-1.025) 08/05/20 16:45 Urine Protein NEG MG/DL (NEG-TRACE) 08/05/20 16:45 Urine Glucose (UA) NEG MG/DL (NEG) 08/05/20 16:45 Urine Ketones NEG MG/DL (NEG) 08/05/20 16:45 Urine Blood NEG (NEG) 08/05/20 16:45 Urine Nitrite NEG (NEG) 08/05/20 16:45 Ur Leukocyte Esterase NEG (NEG) 08/05/20 16:45 Urine RBC 0-2 /HPF (0) 08/05/20 16:45 Urine WBC 0-2 /HPF (0-4) 08/05/20 16:45 Ur Squamous Epith Cells TRACE /LPF 08/05/20 16:45 Urine Bacteria TRACE /LPF 08/05/20 16:45 Urine Opiates Screen Not Detected (Not Detect) 08/05/20 16:45 Ur Barbiturates Screen POSITIVE (Not Detect) H 08/05/20 16:45 Ur Phencyclidine Scrn Not Detected (Not Detect) 08/05/20 16:45 Ur Amphetamines Screen Not Detected (Not Detect) 08/05/20 16:45 U Benzodiazepines Scrn Not Detected (Not Detect) 08/05/20 16:45 Urine Cocaine Screen Not Detected (Not Detect) 08/05/20 16:45 U Marijuana (THC) Screen Not Detected (Not Detect) 08/05/20 16:45 Ethyl Alcohol < 10 mg/dL 08/05/20 13:16 COVID-19 (TUAN) Negative (Negative) 08/05/20 13:17 COVID-19 Clin Com See Note 08/05/20 13:17 Discharge Plan Discharge Patient Disposition: Home, Self-Care Referrals: Physician,Unknown [Primary Care Provider] - Discharge Medications: New amlodipine [Norvasc] 2.5 mg tablet 2.5 mg PO DAILY Qty: 30 RF: 0 Continued ondansetron HCl 4 mg tablet 1 tab PO Q6H PRN (Reason: nausea/vomiting) RF: 0 potassium chloride 10 mEq tablet extended release 1 tab PO Q12H RF: 0 omeprazole 20 mg capsule,delayed release(DR/EC) 1 cap PO DAILY RF: 0 Discharge Orders: Discharge Order (Routine); Ordered 08/11/20 Ordered By: Aime Smith Diet: advance to usual diet Activity on Discharge: As tolerated Visit Report Forms: Patient Portal Discharge page Care Plan Goals: To stay healthy and out of the hospital. Health Concerns: Alcohol abuse and dependence Incisional Hernia Plan of Treatment: Do not drink alcohol Follow up with your surgeons for further care
[2020-08-11 11:20] VITALS: BP 136/80; PULSE 75; RESP 18; TEMP 36.9; O2SAT 98
--- NOTE | 2020-08-11 11:24 | MHC.CM.PN ---
Male 64 DC today to home. No home services. Care team provided community resource information. Patients son will provide transportation.
== END 2020-08-11 12:42 | disposition home or self-care (01) | DRG 392 ==
LOC: HO.ED 15:40 → HO.IMC 16:26
PROVIDERS: Internal Medicine; Nurse Practitioner Primary Care; Surgery; Admitting Provider Hospitalist; Emergency Provider Emergency Medicine; Visit Provider Family Medicine
DX: K29.70 Gastritis, unspecified, without bleeding (principal); F10.239 Alcohol dependence with withdrawal, unspecified; K43.2 Incisional hernia without obstruction or gangrene; E87.6 Hypokalemia; R94.31 Abnormal electrocardiogram [ECG] [EKG]; Z20.828 Contact with and (suspected) exposure to other viral communicable diseases; Z79.899 Other long term (current) drug therapy
CPT/HCPCS: 36415; 71045; 74018; 74176; 80048; 80051; 80053; 80307; 80320; 81001; 83605; 83735; 84484; 85025; 85610; 85730; 87635; 93005; 96365; 96366; 96367; 96372; 96375; 97162; 99285; J1650; J2060; J2560; J3411; J3475

== ENCOUNTER 2021-01-09 12:48 | Emergency (ER) | payer OTHER, SELFPAY ==
--- NOTE | 2021-01-09 13:02 | ED_ITS ---
HPI - Overdose General Chief Complaint: Overdose Stated Complaint: od Time Seen by Provider: 01/09/21 13:01 Source: patient and EMS Mode of arrival: EMS Limitations: no limitations History of Present Illness HPI Narrative: 65 yo male with hx of HTN, PAD, chronic abdominal pain/hernia here after accidental heroin overdose from injecting, went to methadone clinic started on 25mg didn't realize it wouldn't take the edge proceeded to inject heroin and overdose, required rescue bagging, IN narcan 2mg, IV narcan 0.5mg which finally woke him up complaint: accidental overdose Onset (ago): minute(s) Context: Accidental Overdose: wanted to get high Treatments Prior to Arrival: oxygen (was given rescue breaths) and narcan (2mg IN, 0.5mg IV) Related Data Home Medications Medication Instructions Recorded Confirmed omeprazole 1 cap PO DAILY 08/05/20 08/05/20 ondansetron HCl 1 tab PO Q6H PRN 08/05/20 08/05/20 potassium chloride 1 tab PO Q12H 08/05/20 08/05/20 Previous Rx's Medication Instructions Recorded amlodipine [Norvasc] 2.5 mg PO DAILY #30 tab 08/11/20 Allergies Allergy/AdvReac Type Severity Reaction Status Date / Time No Known Allergies Allergy Unverified 05/15/20 14:53 Review of Systems Review of Systems: Constitutional : No Weight loss, No Fever, pos Chills, No Fatigue, No Malaise ENT/Mouth : No sore throat, No Rhinorrhea Eyes: No Eye Pain, No Swelling, No Redness Cardiovascular : No Chest Pain, No SOB, No Dyspnea on Exertion, No Orthopnea, No Edema, No Palpitations Respiratory : No Cough, No Sputum, No Wheezing Gastrointestinal : No Nausea, No Vomiting, No Diarrhea, No Constipation, No abdominal Pain, No Hematochezia, No Melena Genitourinary : No Dysuria, No Urinary Frequency, No Hematuria, Musculoskeletal : No joint pain, No Myalgias, No Joint Swelling Skin : No Skin Lesions, No rash Neuro : No Weakness, No Numbness, No Dizziness, No Headache Psych : No Anxiety/Panic, No Depression, no SI/HI Heme/Lymph: No Bruising, No Bleeding,No Lymphadenopathy Endocrine : No Polyuria, No Polydipsia All other systems reviewed and are negative [facility] Past Medical History Attestation statement: The following information was validated with the patient. Medical History Atherosclerosis of aorto-iliac bypass graft Depressive disorder ETOH abuse Hepatitis Hypertension Thrombocytopenia Surgical History H/O aorto-femoral bypass Hx of endovascular stent graft for abdominal aortic aneurysm Social History Social History Household Members: Unknown / Unable to assess Housing: Unknown / Unable to assess Alcohol intake: current Alcohol intake frequency: 3 or more drinks per day Smoking Status: Unknown if ever smoked Substance Use Type: Heroin Advance Directives: Yes Advance Directives Information Provided: Yes Advance Directives on File: No service: Yes Current occupational status: disabled Physical Exam Vital Signs: Vital Signs: Last Vital Signs Temp 97.5 F 01/09/21 13:26 Pulse 107 H 01/09/21 13:26 Resp 19 01/09/21 13:26 BP 112/75 01/09/21 13:26 Pulse Ox 95 01/09/21 13:26 Body Mass Index 21.5 Appearance: Alert. Oriented X3. No acute distress. Eyes: Pupils equal, round and reactive to light. 3mm ENT: Pharynx normal. Neck: Normal inspection. Neck supple. CVS: Normal heart rate and rhythm. Pulses normal. Respiratory: No respiratory distress. Breath sounds normal. Abdomen: Soft and nontender. incisional hernia noted Skin: Skin warm and dry. Normal skin color. Normal skin turgor. Extremities: No lower extremity edema. No calf ttp Neuro: Oriented X 3. No motor deficit. No sensory deficit. Course Course Course Narrative: plans to follow up in the clinic - no SI, will DC home with narcan obs x 1.5 hours no need for repeat narcan MDM - Overdose MDM Narrative Medical decision making narrative: 65 yo male accidental heroin overdose, will observe in ED, no trauma, no SI, notified recovery team for help Discharge Plan Discharge Clinical Impression: Accidental heroin overdose Patient Disposition: Home, Self-Care Instructions: Opioid Use Disorder (ED) Additional Instructions: return to ED for any worsening symptoms or concerns Prescriptions: No Action ondansetron HCl 4 mg tablet 1 tab PO Q6H PRN (Reason: nausea/vomiting) RF: 0 potassium chloride 10 mEq tablet extended release 1 tab PO Q12H RF: 0 omeprazole 20 mg capsule,delayed release(DR/EC) 1 cap PO DAILY RF: 0 amlodipine [Norvasc] 2.5 mg tablet 2.5 mg PO DAILY Qty: 30 RF: 0
[2021-01-09 13:26] VITALS: BP 112/75; PULSE 107; RESP 19; TEMP 36.4; O2SAT 95; BMI 21.5
--- NOTE | 2021-01-09 13:29 | PC.NURSE ---
Pt changed into hospital attire. Heroine in pt's pocket taken by security. All belongings secured in .
--- NOTE | 2021-01-09 14:20 | MHC.RECOVSUP ---
Recovery Support note: Patient is a 65 year old [place] speaking male who presented to [facility] ED via EMS after an accidental overdose. Patient is known to this technical writer and editor from previous consultations on the medical floor. This technical writer and editor met with patient to discuss substance use and treatment options. Patient reports he was at a hospital in [place] for the past two weeks. Patient reports he had a nip last night to take the edge off. Patient reports he was using several bundles of heroin a day prior to going to the hospital. Patient reports he went to a methadone clinic today for an intake and dosing and patient was disappointed that he did not feel immediate relief from the methadone so he bought heroin and used, resulting in an overdose. Discussed methadone maintenance with patient and explained how it takes time for the clinic to increase his dose. Patient acknowledged and reported that his expectations were too high. Patient was tearful during consultation, stating that he feels as though he let his kids down. Encouraged patient not to beat himself up as he is actively seeking help and trying to better himself. Patient reports he has a hernia that causes him pain and affects his quality of life. Patient reports he has to stop smoking to get the surgery but he reports he is afraid of the surgery as it is a major operation. Patient acknowledges that he has to get it down, stating I want to live, I want to be there for my children. Encouraged patient to continue with the methadone program and to give it time for them to increase his dose. Discussed smoking cessation with patient and encouraged him to start cutting down his cigarette intake. Patient acknowledged. Discussed [facility] with patient and provided patient with information on this support. Discussed case with patient's ED provider.
--- NOTE | 2021-01-09 15:09 | PC.NURSE ---
Pt seen by recovery auditor. He remains alert and oriented. IV removed and son on his way to pick him up.
== END 2021-01-09 15:56 | disposition home or self-care (01) ==
PROVIDERS: Emergency Provider Emergency Medicine
DX: T40.1X1A Poisoning by heroin, accidental (unintentional), initial encounter (principal); Y92.9 Unspecified place or not applicable; F11.10 Opioid abuse, uncomplicated; Z79.899 Other long term (current) drug therapy; Z71.51 Drug abuse counseling and surveillance of drug abuser
CPT/HCPCS: 99283